=== PATIENT | male | born 1960 | race Caucasian/White ===

== ENCOUNTER 2019-10-25 12:55 | Inpatient (IN) ==
[2019-10-19 12:34] LABS: Basophils # (Auto) 0.06 K/mcL (0.00-0.30); Basophils % (Auto) 0.6 % (0.0-2.0); Eosinophils # (Auto) 0.12 K/mcL (0.00-0.70); Eosinophils % (Auto) 1.2 % (0.0-7.0); Hematocrit 48.8 % (40.1-51.0); Hemoglobin 15.9 g/dL (13.7-17.5); Lymphocytes # (Auto) 2.07 K/mcL (1.50-4.80); Lymphocytes % (Auto) 21.1 % (15.5-49.0); Mean Corpuscular HGB Conc 32.6 g/dL (31.0-36.0); Mean Platelet Volume 9.6 fL (7.4-10.4); Monocytes % (Auto) 7.1 % (1.0-12.0); Platelet Count 301 K/mcL (140-440); RBC 5.25 M/mcL (4.63-6.08); Red Cell Distribution Width 12.7 % (11.5-14.5); WBC 9.8 K/mcL (4.50-11.00)
[2019-10-19 12:44] LABS: Appearance,Urine CLEAR; Bacteria,Urine 0 /hpf (0); Bilirubin,Urine NEG (NEG); Color,Urine YELLOW; Culture Indicated,Urine NO; Glucose,Urine (UA) 150 mg/dL (NEG); Ketones,Urine NEG (NEG); Leukocyte Esterase,Urine NEG /uL (NEG); Mucus,Urine FEW /hpf (0); Nitrate,Urine NEG (NEG); Protein,Urine 100 mg/dL (NEG); Specific Gravity,Urine 1.013 (1.000-1.035); Urine Blood NEG mg/dL (<0.03); Urine Hyaline Cast 3 /lpf (0-2); Urine RBC 1 /hpf (0-1); Urine Squamous Epithelial Cell 1 /hpf (0-4); Urine WBC 2 /hpf (0-4); Urobilinogen,Urine NEG (NEG)
[2019-10-19 12:47] LABS: Blood Urea Nitrogen 38 mg/dl (8-23); Calcium 9.4 mg/dl (8.6-10.4); Carbon Dioxide 26 mmol/L (22-30); Chloride 102 mmol/L (96-108); Glomerular Filtration Rate 37; Glucose 63 mg/dL (70-105)
[2019-10-20 00:55] LABS: Estimated Average Glucose(eAG) 223 mg/dL; Hemoglobin A1C 9.4 % HGB (4.0-6.0)
[~2019-10-25 12:55] MED LIST: ceFAZolin 2 GM in DEXTROSE 5% IN WATER 50 ML IV SCH
[2019-10-25] MEDS ORDERED: KETAMINE 100 MG/ML ML IV ONE (15:09)
[2019-10-25] MEDS ORDERED: ONDANSETRON 4 MG/2 ML VIAL IV ONE (15:09)
[2019-10-25] MEDS ORDERED: GLYCOPYRROLATE 0.2 MG/ML VIAL IV ONE (15:09)
[2019-10-25] MEDS ORDERED: PHENYLEPHRINE 10 MG/ML VIAL IV ONE (15:09)
[2019-10-25] MEDS ORDERED: LIDOCAINE HCL/PF 100 MG/5 ML SYRINGE IV ONE (15:09)
[2019-10-25] MEDS ORDERED: fentaNYL 100 MCG/2 ML VIAL IV ONE (15:09)
[2019-10-25] MEDS ORDERED: MIDAZOLAM 2 MG/2 ML VIAL IV ONE (15:09)
[2019-10-25] MEDS ORDERED: DEXAMETHASONE 10 MG/ML VIAL IV ONE (15:09)
[2019-10-25] MEDS ORDERED: PROPOFOL 200 MG/20 ML VIAL IV ONE (15:09)
[2019-10-25] MEDS ORDERED: ONDANSETRON 4 MG/2 ML VIAL IV PRN ×2 (16:13→16:30)
[2019-10-25] MEDS ORDERED: IPRATROPIUM/ALBUTEROL 3 ML AMPUL.NEB NEB PRN (16:13)
[2019-10-25] MEDS ORDERED: ACETAMINOPHEN 1,000 MG/100 ML BOTTLE IV ONE (16:13)
[2019-10-25] MEDS ORDERED: METHOCARBAMOL 1,000 MG/10 ML VIAL IV PRN (16:13)
[2019-10-25] MEDS ORDERED: LACTATED RINGERS 1,000 ML IV SCH (16:15)
[2019-10-25] MEDS ORDERED: BENZOCAINE/MENTHOL 1 LOZENGE PO PRN (16:30)
[2019-10-25] MEDS: fentaNYL 100 MCG/2 ML VIAL IV PRN ×4 (16:47→16:57)
--- NOTE | 2019-10-25 17:17 | Brief Operative Note ---
Brief Operative Note Date of procedure: 10/25/19 Pre-op diagnosis: L Thumb Open Wounds, Sultana Abscess, Flexor Tenosynovitis Post-op diagnosis: other (L Thumb Open Wounds, Sultana Abscess, Flexor Tenosynovitis with FPL Rupture, Distal and Proximal Phalanx Osteomyelitis) Procedure: 1. Debridement and irrigation of left thumb sultana abscess 2. Debridement and irrigation of left thumb FPL flexor sheath with excision of FPL tendon 3. Debridement and irrigation of left thumb distal phalanx osteomyelitis 4. Debridement and irrigation of left thumb proximal phalanx ostermyelitis Grafts/Implants: No Findings: As above Complications: none Surgeon: Chetan Goss Estimated blood loss (cc): 3 Tourniquet Time (Minutes): 47 Specimens Removed/Pathology: other (Aerobic/Anaerobic cultures left thumb flexor sheath) Condition: stable Disposition: PACU
[2019-10-25] MEDS: HYDROCODONE/APAP 7.5/325MG TABLET PO PRN ×2 (17:24→21:15)
--- NOTE | 2019-10-25 17:27 | XRay Report ---
HISTORY: Postop debridement and irrigation of the left thumb FINDINGS: There is overlying cast material which partially obscures the phalanges of the left thumb. There is normal alignment at the metacarpal phalangeal and interphalangeal joints. The interphalangeal joint space is narrowed due to underlying arthritis. There may be erosion of bone in the distal end of the proximal phalanx. This is difficult to determine due to the overlying artifact. IMPRESSION: Surgical changes following debridement in the mid thumb. Underlying osteomyelitis in the distal end of the proximal phalanx should be suspected. Follow-up x-ray without cast material would be helpful for further workup. Interpreted and Authenticated by: Paco Nation 10/25/19
[2019-10-25] MEDS ORDERED: VANCOMYCIN PER PHARMACY IV SCH (19:08)
[2019-10-25] MEDS ORDERED: METHOCARBAMOL 750 MG TABLET PO PRN ×2 (20:48→21:15)
[2019-10-25] MEDS ORDERED: TESTOSTERONE CYPIONATE 200 MG/ML IM SCH (21:00)
[2019-10-25] MEDS ORDERED: VANCOMYCIN 1,500 MG in 0.9 % SODIUM CHLORIDE 500 ML IV SCH (21:00)
[2019-10-25] MEDS ORDERED: rOPINIRole 1 MG TABLET PO SCH (21:00)
[2019-10-25] MEDS ORDERED: DEXTROSE 50% 50 ML VIAL IV PRN (21:14)
[2019-10-25] MEDS ORDERED: DEXTROSE 31 GM ORAL.SUSP PO PRN (21:14)
[2019-10-25] MEDS: CEFEPIME 2 GM VIAL IV SCH (21:15)
[2019-10-25] MEDS ORDERED: HYDROcodone/APAP 10/325MG TABLET PO PRN (21:15)
[2019-10-25] MEDS ORDERED: INSULIN LISPRO 1 UNIT/0.01 ML UNIT SQ ONE (21:19)
--- NOTE | 2019-10-25 21:22 | Internal Med History&Physical ---
HPI History of Present Illness Patient information: Note initiated : 10/25/19 at 9:19 pm Service Date, if different from initiated Date: [] Patient: Shamar Valenzuela 59 y/o M admitted on 10/25/19 for Debridement & irrigation of Left thumb palmar open. Chief Complaint: [] This is a 59-year-old gentleman with a history of CAD, status post neck surgery, uncontrolled diabetes, obesity, CKD stage III on chronic diuretics, peripheral neuropathy was brought to the hospital for infected left thumb open wound and abscess. Patient underwent surgery in the OR by orthopedic surgeon and they did a drainage of the abscess and which showed evidence of flexor tenosynovitis and FPL rupture. Post debridement and irrigation patient was admitted for further management. No features of sepsis no fever no chills. Patient has history of type 2 diabetes uncontrolled on insulin continued his home medications. History of CAD status post stent placement continued home medications. History of present illness: Mr. Valenzuela is a 59 year old M Constitutional Constitutional: Absent frequent falls, lethargy and weight gain EENT Eyes: Absent decreased night vision, dry eye, irritation and loss of vision Ears: Absent decreased hearing, ear discharge and tinnitus Nose, mouth and throat: Absent dry mouth, facial pain, hoarseness, mouth pain and nasal obstruction Cardiovascular Cardiovascular: Absent leg ulcers, palpatations, radiating pain and syncope Respiratory Respiratory: Absent stridor, excessive phlegm production and other Gastrointestinal Gastrointestinal: Absent constipation, dyspepsia, excessive flatus, hematemesis, melena and tenesmus Musculoskeletal Musculoskeletal: Present arthralgias, limited range of motion, muscle weakness and myalgias Neurological Neurological: Absent dizziness, headache(s), memory loss, radicular pain, syncope and vertigo Hematologic/Lymphatic Hematologic/Lymphatic: Absent easy bleeding, easy bruising and lymphadenopathy [facility] Medical History (Updated 06/21/16 @ 18:25 by Yamel Mccartney MD) Appendicitis (Chronic) 1979 Asthma (Chronic) Bowel trouble (Chronic) Bronchitis (Chronic) Dr Alvarez Cervical vertebral fracture (Chronic) 1983-Broken cervical vertabrae Chest discomfort (Chronic) Chest pain (Chronic) Chronic kidney disease (Chronic) Constipation (Chronic) COPD (chronic obstructive pulmonary disease) (Chronic) CRF (chronic renal failure) (Chronic) Stage 3- Dr. Gutierrez Decreased testosterone level (Chronic) Depression (Chronic) Diabetes (Chronic) Diabetes mellitus type 2, uncontrolled (Chronic) Edema (Chronic) Erectile dysfunction (Chronic) Foot lesion (Chronic) High blood pressure (Chronic) History of headache (Chronic) Hypogonadism (Chronic) Indigestion (Chronic) Knee pain, right (Chronic) Low back pain (Chronic) Dr Hermosillo Macular edema (Chronic) Onychomycosis (Chronic) Prostate troubles (Chronic) Pyloric stenosis (Chronic) 1953 SOB (shortness of breath) (Chronic) Vitreous hemorrhage, left eye (Chronic) Surgical History (Updated 10/19/15 @ 16:44 by Sandrine Rodriguez) History of surgery (Chronic) Stent placement 10/2013 Dr. Morgan, Needs Plavix x1 year Family History (Updated 10/19/15 @ 16:53 by Sandrine Rodriguez) Mother Family history of thyroid problem Cancer Arthritis Osteoporosis Father Heart disease High blood pressure Social History marital status: occupational status: unemployed smoking status: Never smoker alcohol intake frequency: does not drink seatbelt use: sometimes MEDS/ALLERGIES Home Medications and Allergies Home Medications Medication Instructions Recorded Confirmed Type carvedilol 6.25 mg tablet 12.5 mg PO BID 10/20/15 10/25/19 History clopidogrel 75 mg tablet 25 mg PO QDAY 10/20/15 10/25/19 History hydrocodone 10 mg-acetaminophen 1 tab PO Q6H PRN 10/20/15 10/25/19 History 325 mg tablet insulin syringe-needle U-100 1 unit MISCELLANE BID 10/20/15 10/25/19 History levothyroxine 100 mcg capsule 100 mcg PO QAM cap 10/20/15 10/25/19 History spironolactone 25 mg tablet 25 mg PO BID 10/20/15 10/25/19 History testosterone cypionate 200 mg/mL 400 mg IM Q2W ml 10/20/15 10/25/19 History intramuscular oil furosemide 40 mg tablet 40 mg PO BID tab 11/14/15 10/25/19 History methocarbamol 750 mg tablet 750 mg PO TID PRN tab 11/14/15 10/25/19 History insulin aspart U-100 100 unit/mL 15 unit SUB-Q BID 90 Days #60 06/21/16 10/25/19 History (3 mL) subcutaneous pen insulin glargine 100 unit/mL (3 35 unit SUB-Q BID 90 Days #30 ml 06/21/16 10/25/19 History mL) subcutaneous pen potassium chloride 10 mEq 10 meq PO TID cap 06/21/16 10/25/19 History capsule,extended release gabapentin 300 mg PO TID 10/19/19 10/25/19 History glyburide 10 mg PO BID 10/19/19 10/25/19 History modafinil 100 mg PO QDAY 10/19/19 10/25/19 History ropinirole 4 mg PO QDAY 10/19/19 10/25/19 History blood sugar diagnostic 10/25/19 10/25/19 History Allergies Allergy/AdvReac Type Severity Reaction Status Date / Time hydromorphone [From Dilaudid] Allergy Intermediate Seizure Verified 10/19/19 09:51 EXAM Constitutional Vitals: Temp Pulse Resp BP Pulse Ox 98.7 F 81 12 148/70 96 10/25/19 20:21 10/25/19 20:21 10/25/19 20:21 10/25/19 20:21 10/25/19 20:21 Head Head exam: Present atraumatic, normal inspection and normocephalic Eye Eye exam: Present EOMI; Absent periorbital swelling and scleral icterus ENT ENT exam: Present normal exam, normal external ear exam and normal oropharynx Neck Neck exam: Absent lymphadenopathy, tenderness and thyromegaly Respiratory Respiratory exam: Absent accessory muscle use, respiratory distress, rhonchi and wheezes Cardiovascular Cardiovascular exam: Absent JVD, +S3, +S4 and systolic murmur GI/Abdominal GI/Abdominal exam: Absent hernia, mass and rebound Neurological Exam Neurological exam: Present alert, oriented X3 and reflexes normal; Absent motor sensory deficit Psychiatric Psychiatric exam: Present normal affect; Absent anxious A/P Narrative A/P Narrative: Narrative: Left palmar abscess and tenosynovitis status post drainage Orthopedic surgery took the patient to the OR and underwent drainage and cultures pending Ordered blood culture Started the patient on vancomycin and cefepime Patient is very adamant he wants to go home tomorrow No evidence of sepsis next History of CAD status post stent placement Continue clopidogrel Continue Coreg Patient is also on Lasix and spironolactone-we will hold that for now Type 2 diabetes Continue his home insulin regimen and sliding scale insulin We will hold the glyburide CKD stage III Patient is on chronic diuretics Creatinine 1.9 close to baseline will recheck creatinine tomorrow No evidence of obvious heart failure Recommend the patient to discuss with the PCP and decide on the further need of diuretics We will hold the diuretics for now Peripheral neuropathy due to diabetes Decrease the dose of gabapentin 200 3 times daily which is probably causing bilateral leg edema DVT prophylaxis-we will consider starting heparin as per orthopedic surgeon CODE STATUS-full code Expected length of stay-1-2 midnights CPT code 75985 Time Spent With Patient Time: Total time spent is greater than 50% in coordination of care (as docu mented) at patient's floor/unit and/or counseling patient: QUALITY VTE Deep Vein Thrombosis/Pulmonary Embolism Present on Admission: No
[2019-10-25] MEDS: 0.9 % SODIUM CHLORIDE 10 ML SYRINGE IV SCH (21:30)
[2019-10-25] MEDS: INSULIN GLARGINE, HUMAN 1 UNIT/0.01 ML SQ SCH (21:59)
[2019-10-25] MEDS: GABAPENTIN 300 MG CAPSULE PO SCH (22:00)
[2019-10-25] MEDS ORDERED: ceFAZolin 1 GM VIAL IV SCH (23:00)
[2019-10-26] MEDS: MUPIROCIN OINT 2% 22GM NARES SCH ×2 (00:09→08:49)
[2019-10-26] MEDS: 0.9 % SODIUM CHLORIDE 10 ML SYRINGE IV SCH ×2 (05:54→14:56)
[2019-10-26] MEDS: CEFEPIME 2 GM VIAL IV SCH ×2 (05:54→13:08)
[2019-10-26] MEDS: HYDROCODONE/APAP 7.5/325MG TABLET PO PRN ×4 (05:54→16:28)
[2019-10-26 06:45] LABS: Basophils # (Auto) 0.01 K/mcL (0.00-0.30); Basophils % (Auto) 0.1 % (0.0-2.0); Eosinophils # (Auto) 0 K/mcL (0.00-0.70); Eosinophils % (Auto) 0 % (0.0-7.0); Granulocytes % (Auto) 87.2 % (38.0-78.0); Hematocrit 48.9 % (40.1-51.0); Hemoglobin 15.6 g/dL (13.7-17.5); Lymphocytes # (Auto) 1.07 K/mcL (1.50-4.80); Lymphocytes % (Auto) 9.6 % (15.5-49.0); Mean Cell Volume 94.2 fL (80.0-100.0); Mean Corpuscular HGB Conc 31.9 g/dL (31.0-36.0); Mean Platelet Volume 9.6 fL (7.4-10.4); Monocytes # (Auto) 0.35 K/mcL (0.10-0.90); Monocytes % (Auto) 3.1 % (1.0-12.0); Platelet Count 214 K/mcL (140-440); RBC 5.19 M/mcL (4.63-6.08); Red Cell Distribution Width 12.3 % (11.5-14.5); WBC 11.2 K/mcL (4.50-11.00)
[2019-10-26 06:56] LABS: ALT/SGPT 18 U/l (0-40); AST/SGOT 15 U/l (0-37); Albumin 3.6 gm/dL (3.2-5.2); Albumin/Globulin Ratio 1.1 (1.0-2.3); Alkaline Phosphatase 58 U/L (39-117); Bilirubin,Total 0.2 mg/dL (0.0-1.0); Blood Urea Nitrogen 41 mg/dl (8-23); Calcium 8.6 mg/dl (8.6-10.4); Carbon Dioxide 23 mmol/L (22-30); Chloride 103 mmol/L (96-108); Globulin 3.4 gm/dL (2.2-3.7); Glomerular Filtration Rate 46; Glucose 307 mg/dL (70-105)
[2019-10-26] MEDS ORDERED: LEVOTHYROXINE 100 MCG TABLET PO SCH (07:30)
[2019-10-26] MEDS ORDERED: INSULIN LISPRO 1 UNIT/0.01 ML UNIT SQ SCH (07:30)
[2019-10-26] MEDS ORDERED: glyBURIDE 5 MG TABLET PO SCH (07:30)
[2019-10-26] MEDS ORDERED: POTASSIUM CHLORIDE 10 MEQ TABLET PO SCH (08:00)
[2019-10-26] MEDS ORDERED: CARVEDILOL 12.5 MG TABLET PO SCH (08:00)
--- NOTE | 2019-10-26 08:28 | Operative Note ---
DATE OF OPERATION: 10/25/2019 PREOPERATIVE DIAGNOSES 1. Left thumb palmar open wounds. 2. Left thumb palmar abscess. 3. Left thumb suppurative flexor tenosynovitis. POSTOPERATIVE DIAGNOSES: 1. Left thumb open palmar wounds. 2. Left thumb palmar abscess. 3. Left thumb suppurative flexor tenosynovitis with a traumatic rupture of the flexor pollicis longus tendon. 4. Left thumb distal phalanx osteomyelitis. 5. Left thumb proximal phalanx osteomyelitis. PROCEDURE: 1. Debridement and irrigation of the left thumb palmar abscess. 2. Debridement and irrigation of the left thumb suppurative flexor tenosynovitis and flexor tendon with debridement of the necrotic and ruptured flexor pollicis longus. 3. Debridement and irrigation of the left thumb distal phalanx osteomyelitis. 4. Debridement and irrigation of the left thumb proximal phalanx osteomyelitis. PRIMARY SURGEON: Chetan Goss M.D. ANESTHESIA: General laryngeal mask. ESTIMATED BLOOD LOSS: 3 mL. DRAINS: 1/4-inch Bloomingrose drains placed deep at the distal and proximal aspects of the flexor tendon sheath placed deep to the tendon sheath. SPECIMENS: Aerobic and anaerobic cultures of the flexor sheath. COMPLICATIONS: None. FINAL SPONGE COUNT: Correct. TOTAL TOURNIQUET TIME: 47 minutes. INDICATION: The patient is a 59-year-old, [id number] male who over a month ago sustained a laceration to the palmar aspect of his left thumb with pain, swelling, loss of motion and function with subsequent development of pain, redness, swelling, and drainage from the wound sites that has been refractory to conservative management. His physical examination demonstrates palmar open wounds on the interphalangeal joint and the metacarpophalangeal joint with purulent drainage, necrotic soft tissue evident, limited range of motion with erythema, induration, and purulent drainage. The patient and family verbalized that they understood the proposed procedure with the associated risks and benefits and consented. DESCRIPTION OF PROCEDURE: The patient was taken to the operating room suite and placed supine on the operating room table. Next, general anesthesia was obtained with laryngeal mask. After adequate anesthesia was verified, a tourniquet was placed on the proximal aspect of his left arm, and the left upper extremity was then sterilely prepped and draped in the usual fashion. The thumb was identified. The two open wounds were identified. Next, the wound sites were then connected with an incision line drawn from the ulnar aspect of the more distal wound to the radial aspect of the more proximal wound, and then extended proximally into the thenar musculature. After this demonstrated to be in good position, the left upper extremity was exsanguinated and tourniquet inflated to 280 mmHg. Next, the aforemarked incision was then made. Sharp dissection was taken down through the skin and subcutaneous tissues. Subcutaneous tissues were bluntly divided. There was seen to be significant necrotic and purulent material within the flexor sheath. Meticulous dissection distally also demonstrated purulent material extending from the distal phalanx and the insertion site of the flexor pollicis longus tendon with evidence of necrotic bone and osteomyelitis. There was also evidence of necrotic bone at the distal aspect of the proximal phalanx. Meticulous dissection was taken proximally into the thenar musculature. The incision was extended proximally somewhat to the thenar musculature. This was then meticulously dissected with the soft tissues bluntly with hemostasis, and there was seen to be a necrotic flexor tendon proximally at the flexor tendon sheath with purulence. Next, with the use of sharp and blunt dissection, all necrotic tissue had been removed. The flexor pollicis longus tendon was pulled out to length to good viable tissue and incised, and the necrotic tissue was then removed. There was seen to be significant necrotic tissue at the flexor pollicis longus insertion site of the distal phalanx. The necrotic tissue was all debrided, and into the distal phalanx with the use of a rongeur and curet all necrotic bone was removed from the palmar aspect of the distal phalanx. Next, the debridement was taken into the proximal phalanx at the distal aspect. This was also debrided with a curet and rongeur, and all necrotic tissue was removed. Next, copious irrigation with a liter of sterile saline solution, a repeat debridement of all necrotic former tissues, a second liter of sterile saline solution, a repeat debridement, and a third liter of sterile saline solution and debridement, and a fourth liter of sterile saline solution with a final debridement were performed. The necrotic edges of the skin were also debrided back about 2 mm at the proximal and distal wound sites. After this was completed, there was seen to be excellent removal of all necrotic and/or foreign material. The neurovascular bundles were intact. The flexor pollicis longus tendon had been excised, but the interphalangeal joint and the metacarpophalangeal joints were intact. After the final irrigation, the skin edges were then closed with 4-0 nylon in interrupted sutures and two 1/4-inch Bloomingrose drains placed, one distally and one proximally at the wound sites deep to the flexor sheath. The tourniquet was released. The thumb was seen to pink up very nicely with good drainage from the drain sites. A sterile bulky thumb spica dressing was applied, and a thumb spica splint was applied with the wrist in slight extension and the metacarpals in a neutral position. The patient was awakened, transferred to the [facility], and to the recovery room in stable condition. The patient tolerated the procedure well. Estimated blood loss was 3 mL. Drains included 1/4-inch Hien drain placed proximally and distally deep to the flexor tendon sheath. Complications were none. Final sponge count was correct. Specimens included aerobic and anaerobic cultures of flexor tendon sheath. There was a total tourniquet time of 47 minutes. SRBertha:[email or web address] Job ID: [id number] Doc ID: [id number] Chetan Goss MD
[2019-10-26] MEDS: SPIRONOLACTONE 25 MG TABLET PO SCH ×2 (08:45→16:34)
[2019-10-26] MEDS: INSULIN GLARGINE, HUMAN 1 UNIT/0.01 ML SQ SCH (08:46)
[2019-10-26] MEDS: FUROSEMIDE 40 MG TABLET PO SCH ×2 (08:46→16:34)
[2019-10-26] MEDS: GABAPENTIN 300 MG CAPSULE PO SCH ×2 (08:46→16:34)
[2019-10-26] MEDS: INSULIN LISPRO 1 UNIT/0.01 ML UNIT SQ SCH ×4 (08:46→16:34)
[2019-10-26] MEDS ORDERED: ROPINIROLE 4 MG PO SCH (09:00)
[2019-10-26] MEDS ORDERED: CARVEDILOL 6.25 MG TABLET PO SCH (09:00)
[2019-10-26] MEDS ORDERED: GABAPENTIN 300 MG CAPSULE PO SCH (09:00)
[2019-10-26] MEDS ORDERED: CLOPIDOGREL 75 MG TABLET PO SCH ×2 (09:00)
[2019-10-26] MEDS ORDERED: LEVOTHYROXINE 100 MCG PO SCH (09:00)
[2019-10-26] MEDS ORDERED: MODAFINIL 200 MG TABLET PO SCH (09:00)
[2019-10-26] MEDS ORDERED: INSULIN GLARGINE 35 UNIT SUB-Q SCH (09:00)
[2019-10-26] MEDS ORDERED: VANCOMYCIN 1,000 MG in 0.9 % SODIUM CHLORIDE 250 ML IV SCH (09:00)
[2019-10-26] MEDS ORDERED: INSULIN ASPART U SUB-Q SCH (09:00)
[2019-10-26] MEDS ORDERED: SODIUM POLYSTYRENE SULFONATE 15 GM/60 ML SUSPENSION PO ONE (09:15)
--- NOTE | 2019-10-26 11:42 | Discharge Summary ---
Discharge Provider Provider Patient information: Note initiated : 10/26/19 at 11:40 am Service Date, if different from initiated Date: [] Patient: Shamar Valenzuela 59 y/o M admitted on 10/25/19 for Debridement & irrigation of Left thumb palmar open. Chief Complaint: This is a 59-year-old gentleman with a history of CAD, status post neck surgery, uncontrolled diabetes, obesity, CKD stage III on chronic diuretics, peripheral neuropathy was brought to the hospital for infected left thumb open wound and abscess. Patient underwent surgery in the OR by orthopedic surgeon and they did a drainage of the abscess and which showed evidence of flexor tenosynovitis and FPL rupture. Post debridement and irrigation patient was admitted for further management. No features of sepsis no fever no chills. Patient has history of type 2 diabetes uncontrolled on insulin continued his home medications. History of CAD status post stent placement continued home medications. 10/26/2019 Patient was very adamant he wants to be discharged home today Otherwise he threatened to leave AMA Discussed with the orthopedic surgeon Dr. Goss. He recommended patient to be discharged home with outpatient IV antibiotics. He recommended ordering a PICC line for outpatient antibiotics Patient's blood culture is pending negative for 24-hour but the PICC line team wanted 48-hour negative blood culture. Discussed with the PICC line nurse and they are planning to place a PICC line tomorrow when you come for infusion Patient will be discharged with vancomycin daily and ceftriaxone 2 g daily Patient will be scheduled to follow-up with infectious disease specialist in 5 days and primary care in 5 days Patient also see orthopedic surgeon Dr. Goss in 5 days Patient's potassium was 5.8 today strongly recommend the patient to stay until we recheck the potassium after giving 30 mg of Kayexalate If his potassium is coming down patient can be released otherwise he has to go AMA if he wants to leave. He was taking potassium supplement at home which probably resulted in high potassium when we stopped the diuretics Left palmar abscess and tenosynovitis status post drainage Orthopedic surgery took the patient to the OR and underwent drainage and cultures pending Ordered blood culture Started the patient on vancomycin and cefepime Patient is very adamant he wants to go home tomorrow No evidence of sepsis Patient was very adamant to be discharged home today otherwise he threatened to left AMA Discussed with orthopedic surgeon and plan is to place a PICC line tomorrow and discussed with the PICC line nurse Pending blood cultures so far no growth Patient will be discharged on vancomycin and ceftriaxone daily Patient is established with infectious disease Hyperkalemia due to potassium supplement Patient takes 30 mEq of potassium at home We stopped the diuretics ? Worsening renal failure probably due to diuretics Patient does not have any evidence of congestive heart failure He has chronic leg edema which probably due to gabapentin We stopped the diuretics as the patient did not have any hypoxia no hyperkalemia and worsening renal failure His creatinine started improving I strongly recommend patient is to follow-up with the primary care provider and decide on the further need of diuretics History of CAD status post stent placement Continue clopidogrel Continue Coreg Patient is also on Lasix and spironolactone-we will hold that for now Type 2 diabetes Continue his home insulin regimen and sliding scale insulin We will hold the glyburide Peripheral neuropathy due to diabetes Decrease the dose of gabapentin 200 3 times daily which is probably causing bilateral leg edema DVT prophylaxis-we will consider starting heparin as per orthopedic surgeon CODE STATUS-full code Date of admission: 10/25/19 17:12 Discharge date: 10/26/19 Primary care physician: JOSEPHINE Chirinos Consults: 10/25/19 16:36 Consult to Physician [CONS] Routine Comment: Hospitalist to consult for post op medical Consulting Provider: Chetan Goss Reason For Exam: Physician to Consult 10/25/19 20:04 Consult to Physician [CONS] Routine Comment: Consulting Provider: Joselo Rachel Reason For Exam: Physician to Consult Discharge Meds Discharge Medications Active and Home Medications: Home Medications carvedilol 6.25 mg tablet 12.5 mg PO BID 10/20/15 [History Confirmed 10/25/19 Last Taken 10/25/19 09:30] clopidogrel 75 mg tablet 75 mg PO QDAY 10/20/15 [History Confirmed 10/25/19 Last Taken 10/19/19] hydrocodone 10 mg-acetaminophen 325 mg tablet 1 tab PO Q6H PRN 10/20/15 [History Confirmed 10/25/19 Last Taken 10/25/19 09:30] insulin syringe-needle U-100 1 unit MISCELLANE BID 10/20/15 [History Confirmed 10/25/19 Last Taken Unknown] levothyroxine 100 mcg capsule 100 mcg PO QAM cap 10/20/15 [History Confirmed 10/25/19 Last Taken 10/24/19] testosterone cypionate 200 mg/mL intramuscular oil 400 mg IM Q2W ml 10/20/15 [History Confirmed 10/25/19 Last Taken Unknown] methocarbamol 750 mg tablet 750 mg PO TID PRN tab 11/14/15 [History Confirmed 10/25/19 Last Taken 10/24/19] insulin aspart U-100 100 unit/mL (3 mL) subcutaneous pen 15 unit SUB-Q BID 90 Days #60 06/21/16 [History Confirmed 10/25/19 Last Taken 10/24/19] insulin glargine 100 unit/mL (3 mL) subcutaneous pen 35 unit SUB-Q BID 90 Days #30 ml 06/21/16 [History Confirmed 10/25/19 Last Taken 10/24/19] potassium chloride 10 mEq capsule,extended release 10 meq PO TID cap 06/21/16 [History Confirmed 10/25/19 Last Taken 10/24/19] gabapentin 300 mg PO TID 10/19/19 [History Confirmed 10/25/19 Last Taken 10/24/19] glyburide 10 mg PO BID 10/19/19 [History Confirmed 10/25/19 Last Taken 10/24/19] modafinil 100 mg PO QDAY 10/19/19 [History Confirmed 10/25/19 Last Taken 10/24/19] ropinirole 4 mg PO QDAY 10/19/19 [History Confirmed 10/25/19 Last Taken 10/24/19] blood sugar diagnostic 10/25/19 [History Confirmed 10/25/19 Last Taken Unknown] ceftriaxone 2 g IV QDAY 10 Days each NS 10/26/19 [Rx Last Taken Unknown] vancomycin 1 g IV Q24H 10 Days each NS 10/26/19 [Rx Last Taken Unknown] COURSE Hospital Course Discharge diagnosis: Palmar abscess, hyperkalemia Time Spent with Patient Time attestation: Total time spent providing and/or coordinating discharge services: EXAM Constitutional Vitals: Temp Pulse Resp BP Pulse Ox 97.1 F 68 16 121/64 97 10/26/19 07:31 10/26/19 07:31 10/26/19 07:31 10/26/19 07:31 10/26/19 07:31 General appearance: mild distress and obese Head Head exam: Present atraumatic and normal inspection Eye Eye exam: Present EOMI; Absent periorbital swelling and scleral icterus ENT ENT exam: Present normal exam, normal external ear exam and normal oropharynx Neck Neck exam: Present normal inspection; Absent lymphadenopathy and tenderness Respiratory Respiratory exam: Present CTAB; Absent accessory muscle use and respiratory distress Cardiovascular Cardiovascular exam: Present normal rate and rhythm; Absent clicks, JVD, +S3 and +S4 GI/Abdominal GI/Abdominal exam: Present soft and distended; Absent guarding and tenderness Neurological Exam Neurological exam: Present alert, oriented X3 and reflexes normal; Absent motor sensory deficit Psychiatric Psychiatric exam: Present depressed; Absent agitated and anxious Discharge Data Data Completed and Pending Labs on day of discharge: Labs from last 24 hours 10/26/19 10/26/19 05:14 05:14 WBC 11.2 H RBC 5.19 Hgb 15.6 Hct 48.9 MCV 94.2 MCH 30.1 MCHC 31.9 RDW 12.3 Plt Count 214 MPV 9.6 Gran % 87.2 H Lymph % (Auto) 9.6 L Davis % (Auto) 3.1 Eos % (Auto) 0 Baso % (Auto) 0.1 Gran # 9.73 H Lymph # (Auto) 1.07 L Davis # (Auto) 0.35 Eos # (Auto) 0 Baso # (Auto) 0.01 Sodium 137 Potassium 5.8 H Chloride 103 Carbon Dioxide 23 Anion Gap 11.0 BUN 41 H Creatinine 1.6 H GFR Calculation 46 Glucose 307 H Calcium 8.6 Magnesium 2.3 Total Bilirubin 0.2 AST 15 ALT 18 Alkaline Phosphatase 58 Total Protein 7.0 Albumin 3.6 Globulin 3.4 Albumin/Globulin Ratio 1.1 Preliminary micro results at discharge 10/25/19 17:14 Anaerobic Culture - Preliminary Wound - Deep Discharge Plan Patient/Caregiver Discharge Instructions Activity: increase activity as tolerated Diet: Regular Diet Activity Restrictions/Additional Instructions: Follow-up with your primary care provider in 1 to 2 days to recheck your potassium level Follow-up with Dr. Goss in [address] pascual in 5 days Continue daily antibiotics vancomycin and ceftriaxone at our infusion center and follow-up with infectious disease specialist for further management Prescriptions: New ceftriaxone 2 gram recon soln 2 g IV QDAY 10 Days RF: 0 vancomycin 1.5 gram recon soln 1 g IV Q24H 10 Days RF: 0 Continued carvedilol 6.25 mg tablet 12.5 mg PO BID RF: 0 clopidogrel [Plavix] 75 mg tablet 75 mg PO QDAY RF: 0 hydrocodone-acetaminophen 10-325 mg tablet 1 tab PO Q6H PRN (Reason: pain) RF: 0 testosterone cypionate [Depo-Testosterone] 200 mg/mL oil 400 mg IM Q2W RF: 0 levothyroxine 100 mcg capsule 100 mcg PO QAM RF: 0 insulin syringe-needle U-100 1 unit MISCELLANE BID RF: 0 methocarbamol 750 mg tablet 750 mg PO TID PRN (Reason: Muscle Spasms) RF: 0 insulin aspart U-100 100/ML insulin pen 15 unit SUB-Q BID 90 Days Qty: 60 RF: 0 insulin glargine 100/ML insulin pen 35 unit SUB-Q BID 90 Days Qty: 30 RF: 0 potassium chloride 10 mEq capsule, extended release 10 meq PO TID RF: 0 glyburide 5 mg Tablet 10 mg PO BID RF: 0 ropinirole 2 mg Tablet 4 mg PO QDAY RF: 0 gabapentin 300 mg Capsule 300 mg PO TID RF: 0 modafinil 100 mg Tablet 100 mg PO QDAY RF: 0 Discontinued spironolactone 25 mg tablet 25 mg PO BID RF: 0 furosemide 40 mg tablet 40 mg PO BID RF: 0 No Action (DME) blood sugar diagnostic Strip MISCELLANEOUS RF: 0 Follow Up Plan Follow up with: Hemalatha Morales ARNP [Primary Care Provider] - (in 1-2 days for follow up potassium) Shiraz Pascual MD [Physician] - (in 5 days for further antibiotics managment) Chetan Goss MD [Physician] - 10/28/19 10:50 am (in 5 days ) Patient Disposition: Home, Self-Care Rehab Potential: Serious I certify that the patient requires SNF services: No Overall status at discharge: patient is not back to baseline Discharge Orders: Discharge Order (Routine); Ordered 10/26/19 Ordered By: Joselo Rachel Discharge Comment: Make sure his recheck potassium is less than 5.8 QUALITY VTE Deep Vein Thrombosis/Pulmonary Embolism Present on Admission: No
== END 2019-10-26 16:55 | disposition home or self-care (01) | DRG 513 ==
LOC: SUR 12:55 → MEDSUR 17:12
PROVIDERS: ADMIT Internal Medicine; ATTEND Internal Medicine

== ENCOUNTER 2021-11-27 08:12 | Inpatient (IN) ==
[2021-11-27] MEDS ORDERED: IOPAMIDOL 100 ML BOTTLE IV ONE (08:13)
--- NOTE | 2021-11-27 08:27 | Emergency Department Note ---
HPI General Chief complaint: Shortness of Breath/Dyspnea Stated complaint: shortness of breath Time Seen by Provider: 11/27/21 08:16 Source: patient Mode of arrival: ambulatory Limitations: no limitations History of Present Illness HPI Narrative: Narrative: Patient is a 61-year-old male with a history significant for hypertension, COPD, CKD, CAD with history of stent, and diabetes who presents to the emergency de partment due to shortness of breath. Patient states that he has had worsening shortness of breath over the last 2 days. He states that this worsens with activity. He states that yesterday he did have a couple of episodes of heartburn. He states that he took Tums, and this improved. He states that he uses oxygen at night due to obstructive sleep apnea, but has had to use oxygen during the day more recently. Patient states that he has been less active due to the heat. He states that he has stayed inside and essentially has just been sitting. He states that his yesterday noticed that his right leg was more swollen than his left. He denies history of heart failure. He denies any other concerns at this time. Related Data Home Medications Medication Instructions Recorded Confirmed blood sugar diagnostic 10/25/19 11/17/21 nystatin 100,000 unit/gram topical 1 applic topical BID PRN 01/19/21 11/17/21 powder Previous Rx's Medication Instructions Recorded cholecalciferol (vitamin D3) 50 50 mcg PO QDAY #30 tabs 04/06/20 mcg (2,000 unit) tablet potassium chloride 10 mEq 10 meq PO TID #90 caps 01/19/21 capsule,extended release levothyroxine 100 mcg capsule 100 mcg PO QAM #90 caps 03/12/21 insulin glargine 100 unit/mL (3 32 unit (0.32 mL) subcut BID #60 mL 04/03/21 mL) subcutaneous pen (Lantus Solostar U-100 Insulin) oxygen #1 ea 04/11/21 insulin syringe-needle U-100 1 mL #100 ea 05/16/21 30 gauge x 1/2" carvedilol 12.5 mg tablet 12.5 mg PO BID #180 tabs 07/06/21 clopidogrel 75 mg tablet (Plavix) 75 mg PO QDAY #90 tabs 07/06/21 dulaglutide 4.5 mg/0.5 mL 4.5 mg (0.5 mL) subcut QWEEK #6 mL 07/06/21 subcutaneous pen injector gabapentin 300 mg capsule 600 mg PO TID #540 caps 07/06/21 lisinopril 5 mg tablet 5 mg PO QDAY #90 tabs 07/06/21 ropinirole 2 mg tablet 4 mg PO QDAY #180 tabs 07/06/21 atorvastatin 80 mg tablet 80 mg PO QDAY #90 tabs 07/12/21 glyburide 5 mg tablet 10 mg PO BID #360 tabs 08/03/21 furosemide 40 mg tablet 40 mg PO BID #60 tabs 08/29/21 spironolactone 25 mg tablet 25 mg PO BID #180 tabs 09/20/21 insulin aspart U-100 100 unit/mL 1 sliding scale dose subcut TID 10/04/21 subcutaneous solution #30 mL modafinil 100 mg tablet 100 mg PO QDAY PRN narcolepsy #30 10/30/21 tabs methocarbamol 750 mg tablet 750 mg PO TID Muscle Spasms #90 11/02/21 tabs hydrocodone 10 mg-acetaminophen See Rx Instructions .Route 11/16/21 325 mg tablet .COMPLEX PRN pain 30 days #200 tabs testosterone cypionate 200 mg/mL 200 mg IM Q2W #2 mL 11/16/21 intramuscular oil (Depo-Testosterone) ciprofloxacin HCl 500 mg tablet 500 mg PO Q12H #20 tabs 11/17/21 Allergies Allergy/AdvReac Type Severity Reaction Status Date / Time hydromorphone [From Dilaudid] Allergy Intermediate Seizure Verified 11/27/21 08:19 Review of Systems ROS ROS Narrative: Narrative: Constitutional: Denies fever or weakness Eyes: Denies eye pain or vision change ENT ED: Denies throat pain, hearing loss or rhinorrhea Cardiovascular: Reports chest pain (Heart burn yesterday), dyspnea on exertion, orthopnea and edema Respiratory: Reports shortness of breath; Denies cough Gastrointestinal: Denies abdominal pain, nausea, vomiting, diarrhea, constipation, hematochezia or melena Genitourinary: Denies dysuria, frequency, hematuria or incontinence Musculoskeletal: Reports back pain (Chronic, unchanged); Denies myalgia Integumentary: Denies rash or lesions Neurological: Denies headache, weakness, numbness, confusion, abnormal gait or dizziness Psychiatric: Denies anxiety, suicidal thoughts or homicidal thoughts Endocrine: Denies fatigue or polyuria Hematological/Lymphatic: Denies easy bleeding or easy bruising PFSH Narrative Patient History Narrative: Narrative: Medical/Surgical/Family History All Active Problems (Updated 11/27/21 @ 12:37 by Uche Brice MD) Constipation (Chronic) History of surgery (Chronic) Bronchitis (Chronic) Low back pain (Chronic) History of headache (Chronic) Depression (Chronic) Indigestion (Chronic) SOB (shortness of breath) (Chronic) Bowel trouble (Chronic) High blood pressure (Chronic) Erectile dysfunction (Chronic) Cervical vertebral fracture (Chronic) Appendicitis (Chronic) Pyloric stenosis (Chronic) Onychomycosis (Chronic) Hypogonadism (Chronic) Macular edema (Chronic) Edema (Chronic) Vitreous hemorrhage, left eye (Chronic) Knee pain, right (Chronic) COPD (chronic obstructive pulmonary disease) (Chronic) Asthma (Chronic) CKD (chronic kidney disease) stage 3, GFR 30-59 ml/min (Chronic) Chronic pain (Chronic) Vitamin D deficiency (Chronic) Hypertriglyceridemia (Chronic) 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) History of colonoscopy (Chronic ~09/25/18) termination clerk (current) use of opiate analgesic (Chronic) AJAY (obstructive sleep apnea) (Chronic) Morbid obesity due to excess calories (Chronic) Foot callus (Acute) Noncompliance with diet and medication regimen (Chronic) Degenerative joint disease of thoracic spine (Acute) Degenerative joint disease (DJD) of lumbar spine (Acute) Stress (Chronic) Acute exacerbation of CHF (congestive heart failure) (Acute) Medical History Appendicitis 1979 Asthma Bowel trouble Bronchitis Dr Alvarez Cervical vertebral fracture 1983-Broken cervical vertabrae Chest discomfort Chest pain Chronic pain Constipation COPD (chronic obstructive pulmonary disease) Decreased testosterone level Depression Diabetes mellitus with microalbuminuric diabetic nephropathy Edema Erectile dysfunction Foot callus High blood pressure History of headache Hypertriglyceridemia Hypogonadism Indigestion Knee pain, right shelter (current) use of opiate analgesic Low back pain Dr [place]osillo Macular edema Morbid obesity due to excess calories Noncompliance with diet and medication regimen Obesity due to excess calories Onychomycosis AJAY (obstructive sleep apnea) Did not tolerate BiPAP, currently wears oxygen at night Diagnosed around 2012 Osteomyelitis Prostate troubles Pyloric stenosis 1953 SOB (shortness of breath) Stress Vitamin D deficiency Vitreous hemorrhage, left eye Yeast infection of the skin Groin Surgical History History of colonoscopy (~09/25/18) History of surgery Stent placement 10/2013 Dr. Brizuela Needs Plavix x1 year Family History Mother Family history of thyroid problem Cancer Arthritis Osteoporosis Father Heart disease High blood pressure Social History Smoking Status: Never smoker Alcohol Intake Frequency: a few times a week Exam Narrative Narrative: Narrative: General Limitations: no limitations General appearance: Present alert and in no apparent distress; Absent anxious or appears intoxicated Head Head: Present atraumatic and normocephalic Eye Eye: Present PERRL and EOMI; Absent scleral icterus ENT ENT: Present mucous membranes moist; Absent nasal congestion Neck Neck: Present full ROM; Absent tenderness Chest Chest: Present normal inspection and symmetric chest wall rise; Absent tenderness Respiratory Respiratory: Present rales/crackles (Bilateral lung bases); Absent respiratory distress or accessory muscle use Cardiovascular Cardiovascular: Present regular rate, normal rhythm and normal heart sounds Adbominal Abdominal: Present soft and normal bowel sounds; Absent distention or tenderness Extremities Extremities: Present normal inspection and full ROM; Absent tenderness Back Back: Present normal inspection and full ROM; Absent tenderness Neurological Neurological: Present alert and oriented X3 Psychiatric Psychiatric: Present normal affect and normal mood Skin Skin: Present warm (WNL), dry and normal color Course Vital Signs Vital signs: Vital Signs Temperature 98.8 F 11/27/21 08:12 Pulse Rate 104 H 11/27/21 08:12 Respiratory Rate 26 H 11/27/21 08:12 Blood Pressure 175/64 11/27/21 08:12 Pulse Oximetry (%) 87 L 11/27/21 08:12 Oxygen Delivery Method 11/27/21 08:12 Temperature 98.8 F 11/27/21 08:12 Pulse Rate 92 H 11/27/21 12:30 Respiratory Rate 20 11/27/21 12:30 Blood Pressure 148/66 11/27/21 12:19 Pulse Oximetry (%) 98 11/27/21 12:30 Oxygen Delivery Method 11/27/21 08:13 Oxygen Flow Rate (L/min) 3 11/27/21 08:13 MDM MDM Narrative Medical decision making narrative: Narrative: Patient is a 61-year-old male with a history significant for hypertension, COPD, CKD, CAD with history of stent, and diabetes who presents to the emergency department due to shortness of breath. Differential diagnoses include ACS, pneumonia, COVID infection, influenza, heart failure exacerbation. Patient is found to have a BNP greater than 2000. His chest x-ray does demonstrate findings consistent with heart failure exacerbation with bilateral inferior pulmonary edema. A CT scan was performed due to larger right calf, but after patient's arrived she stated that his legs are always like this. CT scan redemonstrated pulmonary edema and did show pleural effusions. There is no pulmonary embolus. Patient has received a dose of Lasix. I have spoken to our hospitalist who has agreed to see and evaluate this patient for admission. Lab Data Result diagrams: 11/27/21 08:31 Labs: Lab Results 11/27/21 11/27/21 11/27/21 Range/Units 08:28 08:31 08:32 WBC 14.7 H (4.5-11.0) K/mcL RBC 3.97 L (4.63-6.08) M/mcL Hgb 11.9 L (13.7-17.5) g/dL Hct 36.5 L (40.1-51.0) % POC Hct 35.0 L (41-55) MCV 91.9 (80.0-100.0) fL MCH 30.0 (26.0-34.0) pg MCHC 32.6 (31.0-36.0) g/dL RDW 13.0 (11.5-14.5) % Plt Count 248 (140-440) K/mcL MPV 10.0 (7.4-10.4) fL Immature Gran % (Auto) 0.4 (0.0-0.5) % Neut % (Auto) 85.4 H (38.0-78.0) % Lymph % (Auto) 7.7 L (15.5-49.0) % Real % (Auto) 5.7 (1.0-12.0) % Eos % (Auto) 0.3 (0.0-7.0) % Baso % (Auto) 0.5 (0.0-2.0) % Lymph # (Auto) 1.13 L (1.50-4.80) K/mcL Real # (Auto) 0.83 (0.10-0.90) K/mcL Eos # (Auto) 0.04 (0.00-0.70) K/mcL Baso # (Auto) 0.07 (0.00-0.30) K/mcL Immature Gran # 0.06 H (0.00-0.05) K/mcl Absolute Neutrophils 12.59 H (1.80-8.00) K/mcL POC Sodium 138 (133-145) POC Potassium 5.2 H (3.3-5.1) POC Chloride 107 (96-108) POC Total CO2 23.0 (22-30) POC BUN 27 H (6-20) POC Creatinine 1.3 H (0.6-1.2) POC Glucose 255 H (70-105) POC WB Ioniz Calcium 1.28 (1.16-1.32) NT-Pro-B Natriuret Pep (<125.0) pg/mL POC Troponin I 0.01 L (0.02-0.08) 11/27/21 Range/Units 08:53 WBC (4.5-11.0) K/mcL RBC (4.63-6.08) M/mcL Hgb (13.7-17.5) g/dL Hct (40.1-51.0) % POC Hct (41-55) MCV (80.0-100.0) fL MCH (26.0-34.0) pg MCHC (31.0-36.0) g/dL RDW (11.5-14.5) % Plt Count (140-440) K/mcL MPV (7.4-10.4) fL Immature Gran % (Auto) (0.0-0.5) % Neut % (Auto) (38.0-78.0) % Lymph % (Auto) (15.5-49.0) % Real % (Auto) (1.0-12.0) % Eos % (Auto) (0.0-7.0) % Baso % (Auto) (0.0-2.0) % Lymph # (Auto) (1.50-4.80) K/mcL Real # (Auto) (0.10-0.90) K/mcL Eos # (Auto) (0.00-0.70) K/mcL Baso # (Auto) (0.00-0.30) K/mcL Immature Gran # (0.00-0.05) K/mcl Absolute Neutrophils (1.80-8.00) K/mcL POC Sodium (133-145) POC Potassium (3.3-5.1) POC Chloride (96-108) POC Total CO2 (22-30) POC BUN (6-20) POC Creatinine (0.6-1.2) POC Glucose (70-105) POC WB Ioniz Calcium (1.16-1.32) NT-Pro-B Natriuret Pep 2076.0 H (<125.0) pg/mL POC Troponin I (0.02-0.08) ED POC Tests ED POC Tests: NATHAN - Influenza A Negative NATHAN - Influenza B Negative NATHAN - SARS Antigen Negative EKG Data EKG #1: EKG attestation: Yes I reviewed and interpreted this EKG. EKG results narrative: Sinus tachycardia with a rate of 103, normal axis, MO of 145, QRS of 147, QTC of 503, T wave inversion in lead III, right bundle branch pattern, and absence of ST elevation or depression. Discharge Plan Patient/Caregiver Discharge Instructions Pt seen by MACHINE OR MACHINERY MECHANIC/PA only: No Clinical Impression: Acute exacerbation of CHF (congestive heart failure) Patient Disposition: Xfer As Inpt ([facility] [place] Condition: Fair Follow up with: Israel Sung MD [Primary Care Provider] - Prescriptions: No Action levothyroxine 100 mcg capsule 100 mcg PO QAM Qty: 90 1RF Lantus Solostar U-100 Insulin 100 unit/mL (3 mL) insulin pen 32 unit subcut BID Qty: 60 1RF (DME) insulin syringe-needle U-100 1 mL 30 gauge x 1/2" syringe See Rx Instructions .Route Qty: 100 5RF Rx Instructions: use with insulin sliding scale 3 times daily atorvastatin 80 mg tablet 80 mg PO QDAY Qty: 90 0RF glyburide 5 mg tablet 10 mg PO BID Qty: 360 1RF furosemide 40 mg tablet 40 mg PO BID Qty: 60 2RF spironolactone 25 mg tablet 25 mg PO BID Qty: 180 1RF Label Comments: TAKE ONE TABLET BY MOUTH TWICE DAILY insulin aspart U-100 100 unit/mL solution 1 sliding scale dose subcut TID Qty: 30 3RF Rx Instructions: Inject TID with meals per Sliding scale, if blood sugar greater than 400 call MD, Max 42 units per day. modafinil 100 mg tablet 100 mg PO QDAY PRN (Reason: narcolepsy) Qty: 30 0RF methocarbamol 750 mg tablet 750 mg PO TID Qty: 90 2RF hydrocodone-acetaminophen 10-325 mg tablet See Rx Instructions .ROUTE .COMPLEX PRN (Reason: pain) 30 Days Qty: 200 0RF Rx Instructions: PRN; 1-2 PO every 4 hours #200 must last for 30 days testosterone cypionate [Depo-Testosterone] 200 mg/mL oil 200 mg IM Q2W Qty: 2 4RF cholecalciferol (vitamin D3) 50 mcg (2,000 unit) tablet 50 mcg PO QDAY Qty: 30 3RF Hold Instructions: Doctor's Order nystatin 100,000 unit/gram powder 1 applic TOPICAL BID PRN potassium chloride 10 mEq capsule, extended release 10 meq PO TID Qty: 90 2RF (DME) oxygen See Rx Instructions .Route .MEDSUPPLY Qty: 1 12RF Rx Instructions: use at night dulaglutide 4.5 mg/0.5 mL pen injector 4.5 mg SUB-Q QWEEK Qty: 6 1RF clopidogrel [Plavix] 75 mg tablet 75 mg PO QDAY Qty: 90 1RF lisinopril 5 mg tablet 5 mg PO QDAY Qty: 90 1RF carvedilol 12.5 mg tablet 12.5 mg PO BID Qty: 180 1RF ropinirole 2 mg tablet 4 mg PO QDAY Qty: 180 1RF gabapentin 300 mg capsule 600 mg PO TID Qty: 540 1RF ciprofloxacin HCl 500 mg tablet 500 mg PO Q12H Qty: 20 0RF (DME) blood sugar diagnostic Strip MISCELLANEOUS
[2021-11-27 08:37] LABS: POC Calcium, Ionized 1.28 (1.16-1.32); POC Creatinine 1.3 (0.6-1.2); POC Potassium 5.2 (3.3-5.1)
[2021-11-27] MEDS ORDERED: ASPIRIN 81 MG TAB.CHEW CHEWED ONE (08:50)
[2021-11-27 09:23] LABS: Basophils # (Auto) 0.07 K/mcL (0.00-0.30); Basophils % (Auto) 0.5 % (0.0-2.0); Eosinophils # (Auto) 0.04 K/mcL (0.00-0.70); Eosinophils % (Auto) 0.3 % (0.0-7.0); Hematocrit 36.5 % (40.1-51.0); Hemoglobin 11.9 g/dL (13.7-17.5); Lymphocytes # (Auto) 1.13 K/mcL (1.50-4.80); Lymphocytes % (Auto) 7.7 % (15.5-49.0); Mean Cell Volume 91.9 fL (80.0-100.0); Mean Corpuscular HGB Conc 32.6 g/dL (31.0-36.0); Monocytes # (Auto) 0.83 K/mcL (0.10-0.90); Monocytes % (Auto) 5.7 % (1.0-12.0); Neutrophils % (Auto) 85.4 % (38.0-78.0); Platelet Count 248 K/mcL (140-440); RBC 3.97 M/mcL (4.63-6.08); WBC 14.7 K/mcL (4.5-11.0)
--- NOTE | 2021-11-27 09:45 | XRay Report ---
CLINICAL INFORMATION: Dyspnea COMPARISON: 10/27/2019 TECHNIQUE: Portable FINDINGS: The heart size, mediastinum and pulmonary vessels are unremarkable. Moderate patchy infiltrates present in both mid and lower lungs.. Small bilateral pleural effusions. The bones and soft tissues are within normal limits. IMPRESSION: Moderate patchy infiltrates both mid and lower lungs. Consider infection or aspiration. Interpreted and Authenticated by: Armand Vasquez 11/27/21
[2021-11-27] MEDS ORDERED: FUROSEMIDE 40 MG/4 ML VIAL IV ONE (09:47)
--- NOTE | 2021-11-27 10:43 | Cat Scan Report ---
CLINICAL INFORMATION: Dyspnea COMPARISON: Thoracic spine CT nearly one year prior 01/24/2021. Abdomen CT 01/28/2007 TECHNIQUE: 80ml of Isovue-370 were injected intravenously. Using SmartPrep to maximize pulmonary artery opacification, .625mm helical slices were obtained from the lung apices through the lung bases. Following reconstruction, 2.5 mm sagittal, coronal, and axial reformations were processed. The exam was reviewed at mediastinal, lung, and bone windows. The exam was performed using radiation dose optimization techniques including, but not limited to, automated exposure control, adjustment of the mA and/or kV according to patient size and use of iterative reconstruction technique. FINDINGS: Pulmonary parenchymal windows show moderate patchy groundglass airspace disease throughout both lower lobes, lingula and right middle lobe. There is also a nodular alveolar airspace disease in the periphery of the upper lobes. In addition, there is thickening of the interlobular septa round both lungs. All findings are new from the thoracic CT less than one year prior. Small bilateral pleural effusions are new. Mediastinal windows show mild cardiomegaly with moderately heavy fibrofatty calcific plaque in the mid and distal LAD and scattered within the circumflex and right coronary arteries. The thoracic aorta is normal diameter with diffuse intimal thickening. The pulmonary arteries are normal diameter [id number] evidence of pulmonary embolus. Scattered borderline enlarged lymph nodes, throughout the mediastinum, are unchanged from the prior CT. A few mildly enlarged lymph nodes in both hilar regions are new and likely represent benign reactive lymph nodes related to lung inflammation. The esophagus is grossly normal. Thyroid is unremarkable. Bones and soft tissues the chest wall show no abnormality. Images of the superior abdomen show 4.7 cm fat-containing mass in the left adrenal gland probably benign myolipoma. This is been stable since 2006. A second 1.2 cm benign myolipoma seen in the left adrenal gland genu which is also stable.. There appears to be an extremely vague mass in the posterior aspect of the superior right kidney which is incompletely imaged. This area was normal on the prior CT. There are also multiple small stones layering dependently within the gallbladder. IMPRESSION: 1. No evidence of pulmonary embolus. 2. Moderate patchy alveolar airspace disease throughout both lower lobes and, to a lesser extent, the right middle lobe and both upper lobes and lingula. In addition, there is thickening of interlobular septa. This may represent a combination of congestive heart failure and infection or aspiration. Please correlate with BNP and other clinical evidence for CHF. 3. Small bilateral pleural effusions. 4. Cholelithiasis-multiple small stones in the gallbladder 5. Suspect 9 cm mass superior pole the right kidney new from a [address] IVP for further evaluation. 6. 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 Interpreted and Authenticated by: Armand Vasquez 11/27/21
[2021-11-27] MEDS ORDERED: FUROSEMIDE 100 MG/10 ML VIAL IV ONE (13:36)
[2021-11-27] MEDS ORDERED: DEXTROSE 31 GM ORAL.SUSP PO PRN (13:37)
[2021-11-27] MEDS ORDERED: DEXTROSE 50% 50 ML VIAL IV PRN (13:37)
--- NOTE | 2021-11-27 13:44 | Internal Med History&Physical ---
HPI History of Present Illness Patient information: Note initiated : 11/27/21 at 1:39 pm Service Date, if different from initiated Date: [] Patient: Shamar Valenzuela 61 y/o M admitted on 11/27/21 for SOB . Chief Complaint: [Shortness of breath] Chief complaint: Shortness of breath History of present illness: Mr. Valenzuela is a 61 year old morbidly obese male with a complex past medical history significant for CAD, AJAY, narcolepsy on modafinil, hypothyroidism, and DM2 on insulin who presents to the hospital with progressive dyspnea. The patient states that he was recently at urgent care as he was complaining of dysuria and was prescribed ciprofloxacin. While at home, he continued to feel increasingly short of breath. Of note he uses supplemental O2 at night for obstructive sleep apnea and when he woke up this morning he decided to continue his O2 and increased the number of liters in order with his respirations. The patient's and family recommended that he come to the hospital for further management and evaluation. On arrival he was hemodynamically stable and afebrile. CTA was performed which was negative for PE. It was believed that he may have possible pneumonia and/or CHF exacerbation. The hospital service was asked admit the patient for further management evaluation. Review of Systems All systems: reviewed and no additional remarkable complaints except as stated Constitutional Constitutional: Present as per HPI EENT Eyes: Present as per HPI; Absent blurry vision Cardiovascular Cardiovascular: Present as per HPI; Absent chest pain, dyspnea, dyspnea on exertion, leg edema or palpatations Respiratory Respiratory: Present as per HPI and dyspnea; Absent cough, dyspnea on exertion, wheezing or stridor Gastrointestinal Gastrointestinal: Present as per HPI; Absent abdominal pain, diarrhea, dysphagia, hematemesis, melena, nausea or vomiting Musculoskeletal Musculoskeletal: Present as per HPI; Absent joint swelling, limited range of motion, muscle cramps, muscle weakness or myalgias Integumentary Integumentary: Present as per HPI; Absent erythema, new lesions, rash or wounds Neurological Neurological: Present as per HPI; Absent abnormal gait, behavioral changes, focal weakness, headache(s), loss of vision, numbness, sensory deficit or syncope Endocrine Endocrine: Absent change in body appearance, fatigue or heat intolerance Hematologic/Lymphatic Hematologic/Lymphatic: Present as per HPI PFSH PFSH All Active Problems (Updated 11/27/21 @ 13:51 by Mercedes Morales MD) Hypothyroidism (Acute) Morbid obesity (Acute) Bilateral pneumonia (Acute) Constipation (Chronic) History of surgery (Chronic) Bronchitis (Chronic) Low back pain (Chronic) History of headache (Chronic) Depression (Chronic) Indigestion (Chronic) SOB (shortness of breath) (Chronic) Bowel trouble (Chronic) High blood pressure (Chronic) Erectile dysfunction (Chronic) Cervical vertebral fracture (Chronic) Appendicitis (Chronic) Pyloric stenosis (Chronic) Onychomycosis (Chronic) Hypogonadism (Chronic) Macular edema (Chronic) Edema (Chronic) Vitreous hemorrhage, left eye (Chronic) Knee pain, right (Chronic) COPD (chronic obstructive pulmonary disease) (Chronic) Asthma (Chronic) CKD (chronic kidney disease) stage 3, GFR 30-59 ml/min (Chronic) Chronic pain (Chronic) Vitamin D deficiency (Chronic) Hypertriglyceridemia (Chronic) 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) History of colonoscopy (Chronic ~09/25/18) intermission coordinator (current) use of opiate analgesic (Chronic) AJAY (obstructive sleep apnea) (Chronic) Morbid obesity due to excess calories (Chronic) Foot callus (Acute) Noncompliance with diet and medication regimen (Chronic) Degenerative joint disease of thoracic spine (Acute) Degenerative joint disease (DJD) of lumbar spine (Acute) Stress (Chronic) Acute exacerbation of CHF (congestive heart failure) (Acute) Medical History Appendicitis 1979 Asthma Bowel trouble Bronchitis Dr Alvarez Cervical vertebral fracture 1983-Broken cervical vertabrae Chest discomfort Chest pain Chronic pain Constipation COPD (chronic obstructive pulmonary disease) Decreased testosterone level Depression Diabetes mellitus with microalbuminuric diabetic nephropathy Edema Erectile dysfunction Foot callus High blood pressure History of headache Hypertriglyceridemia Hypogonadism Indigestion Knee pain, right intermission coordinator (current) use of opiate analgesic Low back pain Dr [place] Macular edema Morbid obesity due to excess calories Noncompliance with diet and medication regimen Obesity due to excess calories Onychomycosis AJAY (obstructive sleep apnea) Did not tolerate BiPAP, currently wears oxygen at night Diagnosed around 2012 Osteomyelitis Prostate troubles Pyloric stenosis 1953 SOB (shortness of breath) Stress Vitamin D deficiency Vitreous hemorrhage, left eye Yeast infection of the skin Groin Surgical History History of colonoscopy (~09/25/18) History of surgery Stent placement 10/2013 Dr. Brizuela Needs Plavix x1 year Family History Mother Family history of thyroid problem Cancer Arthritis Osteoporosis Father Heart disease High blood pressure Social History marital status: occupational status: unemployed smoking status: Never smoker alcohol intake frequency: a few times a week seatbelt use: sometimes MEDS/ALLERGIES Home Medications and Allergies Home Medications Medication Instructions Recorded Confirmed Type blood sugar diagnostic 10/25/19 11/17/21 History cholecalciferol (vitamin D3) 50 50 mcg PO QDAY #30 tabs 04/06/20 11/17/21 Rx mcg (2,000 unit) tablet nystatin 100,000 unit/gram topical 1 applic topical BID PRN 01/19/21 11/17/21 History powder potassium chloride 10 mEq 10 meq PO TID #90 caps 01/19/21 11/17/21 Rx capsule,extended release levothyroxine 100 mcg capsule 100 mcg PO QAM #90 caps 03/12/21 11/17/21 Rx insulin glargine 100 unit/mL (3 32 unit (0.32 mL) subcut BID #60 mL 04/03/21 11/17/21 Rx mL) subcutaneous pen (Lantus Solostar U-100 Insulin) oxygen #1 ea 04/11/21 11/17/21 Rx insulin syringe-needle U-100 1 mL #100 ea 05/16/21 11/17/21 Rx 30 gauge x 1/2" carvedilol 12.5 mg tablet 12.5 mg PO BID #180 tabs 07/06/21 11/17/21 Rx clopidogrel 75 mg tablet (Plavix) 75 mg PO QDAY #90 tabs 07/06/21 11/17/21 Rx dulaglutide 4.5 mg/0.5 mL 4.5 mg (0.5 mL) subcut QWEEK #6 mL 07/06/21 11/17/21 Rx subcutaneous pen injector gabapentin 300 mg capsule 600 mg PO TID #540 caps 07/06/21 11/17/21 Rx lisinopril 5 mg tablet 5 mg PO QDAY #90 tabs 07/06/21 11/17/21 Rx ropinirole 2 mg tablet 4 mg PO QDAY #180 tabs 07/06/21 11/17/21 Rx atorvastatin 80 mg tablet 80 mg PO QDAY #90 tabs 07/12/21 11/17/21 Rx glyburide 5 mg tablet 10 mg PO BID #360 tabs 08/03/21 11/17/21 Rx furosemide 40 mg tablet 40 mg PO BID #60 tabs 08/29/21 11/17/21 Rx spironolactone 25 mg tablet 25 mg PO BID #180 tabs 09/20/21 11/17/21 Rx insulin aspart U-100 100 unit/mL 1 sliding scale dose subcut TID 10/04/21 11/17/21 Rx subcutaneous solution #30 mL modafinil 100 mg tablet 100 mg PO QDAY PRN narcolepsy #30 10/30/21 11/17/21 Rx tabs methocarbamol 750 mg tablet 750 mg PO TID Muscle Spasms #90 11/02/21 11/17/21 Rx tabs hydrocodone 10 mg-acetaminophen See Rx Instructions .Route 11/16/21 11/17/21 Rx 325 mg tablet .COMPLEX PRN pain 30 days #200 tabs testosterone cypionate 200 mg/mL 200 mg IM Q2W #2 mL 11/16/21 11/17/21 Rx intramuscular oil (Depo-Testosterone) ciprofloxacin HCl 500 mg tablet 500 mg PO Q12H #20 tabs 11/17/21 11/17/21 Rx Allergies Allergy/AdvReac Type Severity Reaction Status Date / Time hydromorphone [From Dilaudid] AdvReac Intermediate Seizure Verified 11/27/21 13:42 EXAM Constitutional Vitals: Temp Pulse Resp BP Pulse Ox O2 Del Method O2 Flow Rate 98.8 F 93 H 19 148/72 95 3 11/27/21 08:12 11/27/21 13:16 11/27/21 13:16 11/27/21 13:01 11/27/21 13:16 11/27/21 08:13 11/27/21 08:13 General appearance: average body habitus Head Head exam: Present atraumatic, normal inspection and normocephalic Eye Eye exam: Present EOMI, normal appearance and PERRL; Absent conjunctival injection ENT ENT exam: Present normal exam; Absent mucous membranes dry Neck Neck exam: Present full ROM; Absent lymphadenopathy Respiratory Respiratory exam: Present normal respiratory exam and CTAB; Absent decreased breath sounds, respiratory distress or wheezes Cardiovascular Cardiovascular exam: Present normal rate and rhythm and RRR; Absent JVD GI/Abdominal GI/Abdominal exam: Present normal bowel sounds and soft; Absent diminished bowel sounds, distended, guarding, mass, rebound or tenderness Neurological Exam Neurological exam: Present alert, CN II-XII intact and oriented X3 Psychiatric Psychiatric exam: Present normal affect and normal mood Skin Skin exam: Present intact and warm; Absent erythema, pallor, petechiae or rash DATA Data Completed and Pending Labs: Labs from last 24 hours 11/27/21 11/27/21 11/27/21 08:53 08:32 08:31 WBC 14.7 H RBC 3.97 L Hgb 11.9 L Hct 36.5 L POC Hct 35.0 L MCV 91.9 MCH 30.0 MCHC 32.6 RDW 13.0 Plt Count 248 MPV 10.0 Immature Gran % (Auto) 0.4 Neut % (Auto) 85.4 H Lymph % (Auto) 7.7 L [place] % (Auto) 5.7 Eos % (Auto) 0.3 Baso % (Auto) 0.5 Lymph # (Auto) 1.13 L [place] # (Auto) 0.83 Eos # (Auto) 0.04 Baso # (Auto) 0.07 Immature Gran # 0.06 H Absolute Neutrophils 12.59 H POC Sodium 138 POC Potassium 5.2 H POC Chloride 107 POC Total CO2 23.0 POC BUN 27 H POC Creatinine 1.3 H POC Glucose 255 H POC WB Ioniz Calcium 1.28 NT-Pro-B Natriuret Pep 2076.0 H POC Troponin I 11/27/21 08:28 WBC RBC Hgb Hct POC Hct MCV MCH MCHC RDW Plt Count MPV Immature Gran % (Auto) Neut % (Auto) Lymph % (Auto) [place] % (Auto) Eos % (Auto) Baso % (Auto) Lymph # (Auto) [place] # (Auto) Eos # (Auto) Baso # (Auto) Immature Gran # Absolute Neutrophils POC Sodium POC Potassium POC Chloride POC Total CO2 POC BUN POC Creatinine POC Glucose POC WB Ioniz Calcium NT-Pro-B Natriuret Pep POC Troponin I 0.01 L A/P Assessment and plan (1) SOB (shortness of breath): Status: Chronic (2) CKD (chronic kidney disease) stage 3, GFR 30-59 ml/min: Status: Chronic Qualifiers: Chronic kidney disease stage 3 subtype: stage 3a (GFR 45-59) Qualified Code(s): N18.31 - Chronic kidney disease, stage 3a (3) Diabetes mellitus with microalbuminuric diabetic nephropathy: Status: Chronic (4) Acute exacerbation of CHF (congestive heart failure): Status: Acute (5) Bilateral pneumonia: Status: Acute (6) Morbid obesity: Status: Acute (7) COPD (chronic obstructive pulmonary disease): Status: Chronic (8) Hypothyroidism: Status: Acute Narrative A/P Narrative: The patient is afebrile with an elevated white blood cell count of 14,000. I reviewed the CT findings personally and he has multilobar tree-in-bud opacities. We will start Zithromax and ceftriaxone. He may also have a component of heart failure exacerbation and he will be given Lasix 60 mg IV x1. We will follow-up on blood culture, urine culture. We will also obtain TTE. The patient will be monitored on telemetry. Of note, polypharmacy is a huge component as he is on modafinil which increases his heart rate and blood pressure. If he does have underlying heart failure exacerbation he may need better rate control and afterload reduction. Medication reconciliation is pending. Time Spent With Patient Time: Total time spent is greater than 50% in coordination of care (as documented) at patient's floor/unit and/or counseling patient: Total time spent with greater than 50% in coordination of care (as documented) at patient's floor/unit and/or counseling patient:: Greater than 70 minutes
[2021-11-27] MEDS ORDERED: ACETAMINOPHEN 325 MG TABLET PO PRN (14:01)
[2021-11-27] MEDS ORDERED: ONDANSETRON 4 MG/2 ML VIAL IV PRN (14:01)
[2021-11-27] MEDS ORDERED: cefTRIAXone 1 GM in DEXTROSE 5% IN WATER 50 ML IV SCH (14:01)
[2021-11-27] MEDS ORDERED: ALBUTEROL SULFATE 2.5 MG/3 ML NEBULIZER NEB PRN (14:01)
[2021-11-27] MEDS: HYDROcodone/APAP 10/325MG TABLET PO PRN ×2 (14:39→20:58)
[2021-11-27] MEDS: cefTRIAXone 1 GM VIAL IV SCH (14:49)
[2021-11-27] MEDS: AZITHROMYCIN 500 MG in DEXTROSE 5% IN WATER 250 ML IV SCH (16:09)
[2021-11-27] MEDS: INSULIN LISPRO 1 UNIT/0.01 ML UNIT SQ SCH ×2 (16:18→20:59)
[2021-11-27] MEDS: 0.9 % SODIUM CHLORIDE 10 ML SYRINGE IV SCH ×2 (16:19→21:00)
[2021-11-27] MEDS: GABAPENTIN 300 MG CAPSULE PO SCH (20:58)
[2021-11-27] MEDS: rOPINIRole 1 MG TABLET PO SCH (20:59)
[2021-11-27] MEDS: SENNOSIDES 1 TABLET PO SCH (21:00)
[2021-11-27] MEDS: CARVEDILOL 12.5 MG TABLET PO SCH (21:00)
[2021-11-27] MEDS: DOCUSATE SODIUM 100 MG CAPSULE PO SCH (21:00)
[2021-11-28] MEDS: 0.9 % SODIUM CHLORIDE 10 ML SYRINGE IV SCH ×3 (05:25→20:39)
[2021-11-28 06:51] LABS: Basophils # (Auto) 0.04 K/mcL (0.00-0.30); Basophils % (Auto) 0.4 % (0.0-2.0); Eosinophils # (Auto) 0.05 K/mcL (0.00-0.70); Eosinophils % (Auto) 0.5 % (0.0-7.0); Hemoglobin 11.6 g/dL (13.7-17.5); Lymphocytes # (Auto) 1.17 K/mcL (1.50-4.80); Lymphocytes % (Auto) 11.9 % (15.5-49.0); Mean Cell Volume 90.4 fL (80.0-100.0); Mean Corpuscular HGB Conc 33.1 g/dL (31.0-36.0); Monocytes # (Auto) 0.61 K/mcL (0.10-0.90); Monocytes % (Auto) 6.2 % (1.0-12.0); Neutrophils % (Auto) 80.6 % (38.0-78.0); Platelet Count 228 K/mcL (140-440); RBC 3.87 M/mcL (4.63-6.08); Red Cell Distribution Width 13.1 % (11.5-14.5); WBC 9.8 K/mcL (4.5-11.0)
[2021-11-28 07:14] LABS: Blood Urea Nitrogen 36 mg/dL (8-23); Calcium 9.4 mg/dL (8.6-10.4); Carbon Dioxide 25 mmol/L (22-30); Chloride 99 mmol/L (96-108); Glomerular Filtration Rate 49; Glucose 229 mg/dL (70-105)
[2021-11-28] MEDS: INSULIN LISPRO 1 UNIT/0.01 ML UNIT SQ SCH ×4 (08:07→20:38)
[2021-11-28] MEDS: LEVOTHYROXINE 100 MCG TABLET PO SCH (08:50)
[2021-11-28] MEDS: ATORVASTATIN 40 MG TABLET PO SCH (08:50)
[2021-11-28] MEDS: CARVEDILOL 12.5 MG TABLET PO SCH ×2 (08:51→20:39)
[2021-11-28] MEDS: GABAPENTIN 300 MG CAPSULE PO SCH ×3 (08:51→20:39)
[2021-11-28] MEDS: DOCUSATE SODIUM 100 MG CAPSULE PO SCH ×2 (08:51→20:39)
[2021-11-28] MEDS: CLOPIDOGREL 75 MG TABLET PO SCH (08:51)
[2021-11-28] MEDS: cefTRIAXone 1 GM VIAL IV SCH (08:52)
[2021-11-28] MEDS: ENOXAPARIN 40 MG/0.4 ML SYRINGE SQ SCH (08:53)
[2021-11-28] MEDS: HYDROcodone/APAP 10/325MG TABLET PO PRN ×4 (09:01→21:31)
[2021-11-28] MEDS: AZITHROMYCIN 500 MG in DEXTROSE 5% IN WATER 250 ML IV SCH (10:32)
--- NOTE | 2021-11-28 11:52 | Internal Med Progress Note ---
SUBJECTIVE Subjective Patient information: Note initiated : 11/28/21 at 11:50 am Service Date, if different from initiated Date: [] Patient: Shamar Valenzuela 61 y/o M admitted on 11/27/21 for SOB . Chief Complaint: [SOB] Principal diagnosis: Progressive dyspnea Interval history: The patient was resting comfortably in bed. He states that he is feeling better. His breathing has improved. RN was present at the bedside to discuss the case. Constitutional Vitals: Vital Signs Temp Pulse Resp BP Pulse Ox O2 Del Method O2 Flow Rate 97.7 F 67 14 106/57 97 3 11/28/21 11:41 11/28/21 11:41 11/28/21 11:41 11/28/21 11:41 11/28/21 11:41 11/28/21 11:41 11/28/21 11:41 Period Temp Pulse Resp BP Sys/Dimas Pulse Ox O2 Del Method O2 Flow Rate Last 24 Hr 96.9 F-99.3 F 63-94 13-23 106-155/57-87 93-100 Nasal Cannula- Nasal Cannula 2-3 Intake and Output 11/27/21 11/28/21 11/28/21 21:59 05:59 13:59 Intake Total 730 400 200 Output Total 500 450 Balance 230 400 -250 Weight 119.249 kg Intake & Output: Intake & Output 11/27/21 11/28/21 11/28/21 21:59 05:59 13:59 Intake Total 730 400 200 Output Total 500 450 Balance 230 400 -250 Weight 119.249 kg Intake: IV 250 Zithromax 500 mg In Dextrose 5% 250 in Water 250 ml @ 250 mls/hr IV Q24H [facility] Rx#:[id number] Oral 480 400 200 Output: Void Amount 500 450 Other: Meal Dinner Breakfast Percent of Meal Consumed 100% 100% Feeding Ability Independent Independent Urine Appearance Clear Clear Urine Color Yellow Dark Yellow Urine Odor Normal Head Head exam: Present atraumatic and normal inspection Eye Eye exam: Present normal appearance ENT ENT exam: Present mucous membranes moist, normal exam and normal external ear exam Neck Neck exam: Present normal inspection Respiratory Respiratory exam: Present normal respiratory exam Cardiovascular Cardiovascular exam: Present normal rate and rhythm GI/Abdominal GI/Abdominal exam: Present normal bowel sounds Back Exam Back exam: Present normal inspection Neurological Exam Neurological exam: Present alert and oriented X3 Skin Skin exam: Present intact and warm OBJ DATA Labs CBC & Chem 7: 11/28/21 05:39 11/28/21 05:39 Labs: Abnormal Lab Results 11/28/21 11/28/21 11/27/21 05:39 05:39 08:53 WBC RBC 3.87 L Hgb 11.6 L Hct 35.0 L POC Hct Neut % (Auto) 80.6 H Lymph % (Auto) 11.9 L Lymph # (Auto) 1.17 L Immature Gran # Absolute Neutrophils POC Potassium POC BUN BUN 36 H Creatinine 1.5 H POC Creatinine Glucose 229 H POC Glucose C-Reactive Protein 14.50 H NT-Pro-B Natriuret Pep 2076.0 H POC Troponin I 11/27/21 11/27/21 11/27/21 08:32 08:31 08:28 WBC 14.7 H RBC 3.97 L Hgb 11.9 L Hct 36.5 L POC Hct 35.0 L Neut % (Auto) 85.4 H Lymph % (Auto) 7.7 L Lymph # (Auto) 1.13 L Immature Gran # 0.06 H Absolute Neutrophils 12.59 H POC Potassium 5.2 H POC BUN 27 H BUN Creatinine POC Creatinine 1.3 H Glucose POC Glucose 255 H C-Reactive Protein NT-Pro-B Natriuret Pep POC Troponin I 0.01 L Meds: Medications Acetaminophen (Acetaminophen 325 Mg Tablet) 650 mg PO Q6HP PRN; Protocol PRN Reason: Per Pain Protocol/Fever > 101 Hydrocodone Bitart/Acetaminophen (Hydrocodone/Apap 10/325mg Tablet) 1 - 2 tab PO Q4HP PRN; Protocol PRN Reason: Per Pain Protocol Last Admin: 11/28/21 09:01 Dose: 2 tab Albuterol Sulfate (Albuterol Sulfate 2.5 Mg/3 Ml Nebulizer) 2.5 mg NEB Q2HP PRN PRN Reason: Shortness Of Breath Atorvastatin Calcium (Atorvastatin 40 Mg Tablet) 80 mg PO QDAY [facility] Last Admin: 11/28/21 08:50 Dose: 80 mg Carvedilol (Carvedilol 12.5 Mg Tablet) 12.5 mg PO BID [facility] Last Admin: 11/28/21 08:51 Dose: 12.5 mg Ceftriaxone Sodium (Ceftriaxone 1 Gm Vial) 1 gm IV Q24H [facility] Last Admin: 11/28/21 08:52 Dose: 1 gm Clopidogrel Bisulfate (Clopidogrel 75 Mg Tablet) 75 mg PO QDAY [facility] Last Admin: 11/28/21 08:51 Dose: 75 mg Dextrose (Dextrose 50% 50 Ml Vial) 0 ml IV UD PRN PRN Reason: Per Sliding Scale Diagnostic Test (Pha) (Accu-Chek 1 Each Strip) 1 each FS [facility] Last Admin: 11/28/21 11:28 Dose: 1 each Docusate Sodium (Docusate Sodium 100 Mg Capsule) 100 mg PO BID [facility] Last Admin: 11/28/21 08:51 Dose: 100 mg Enoxaparin Sodium (Enoxaparin 40 Mg/0.4 Ml Syringe) 40 mg SQ DAILY [facility] Last Admin: 11/28/21 08:53 Dose: 40 mg Gabapentin (Gabapentin 300 Mg Capsule) 600 mg PO TID [facility] Last Admin: 11/28/21 08:51 Dose: 600 mg Glucose (Dextrose 31 Gm Oral.Susp) 15 gm PO PRN PRN PRN Reason: Hypoglycemia Azithromycin 500 mg/ Dextrose 250 mls @ 250 mls/hr IV Q24H [facility]; Protocol Stop: 11/29/21 15:59 Last Admin: 11/28/21 10:32 Dose: 250 mls/hr Insulin Human Lispro (Insulin Lispro 1 Unit/0.01 Ml Unit) 0 unit SQ [facility]; Protocol Last Admin: 11/28/21 11:34 Dose: 15 unit Levothyroxine Sodium (Levothyroxine 100 Mcg Tablet) 100 mcg PO QAM [facility] Last Admin: 11/28/21 08:50 Dose: 100 mcg Ondansetron HCl (Ondansetron 4 Mg/2 Ml Vial) 4 mg IV Q6HP PRN PRN Reason: Nausea And Vomiting Ropinirole HCl (Ropinirole 1 Mg Tablet) 4 mg PO QHS [facility] Last Admin: 11/27/21 20:59 Dose: 4 mg Senna (Sennosides 1 Tablet) 2 tab PO [facility] Last Admin: 11/27/21 21:00 Dose: Not Given Sodium Chloride (0.9 % Sodium Chloride 10 Ml Syringe) 10 ml IV Q8 [facility] Last Admin: 11/28/21 05:25 Dose: 10 ml A/P Assessment and plan (1) SOB (shortness of breath): Status: Chronic (2) CKD (chronic kidney disease) stage 3, GFR 30-59 ml/min: Status: Chronic Qualifiers: Chronic kidney disease stage 3 subtype: stage 3a (GFR 45-59) Qualified Code(s): N18.31 - Chronic kidney disease, stage 3a (3) Diabetes mellitus with microalbuminuric diabetic nephropathy: Status: Chronic (4) Acute exacerbation of CHF (congestive heart failure): Status: Acute (5) Bilateral pneumonia: Status: Acute (6) Morbid obesity: Status: Acute (7) COPD (chronic obstructive pulmonary disease): Status: Chronic (8) Hypothyroidism: Status: Acute Narrative A/P Narrative: The patient is afebrile with an elevated white blood cell count of 14,000. I reviewed the CT findings personally and he has multilobar tree-in-bud opacities. We will start Zithromax and ceftriaxone. He may also have a component of heart failure exacerbation and he will be given Lasix 60 mg IV x1. We will follow-up on blood culture, urine culture. We will also obtain TTE. The patient will be monitored on telemetry. Of note, polypharmacy is a huge component as he is on modafinil which increases his heart rate and blood pressure. If he does have underlying heart failure exacerbation he may need better rate control and afterload reduction. Medication reconciliation is pending. 11/28: The patient's white blood cell count has improved from 14.7 and is now 9.8. He remains afebrile. His dyspnea was likely due to bilateral pneumonia. We will continue ceftriaxone and Zithromax. The patient is fully independent and does not require PT/OT eval. He will have a home O2 eval prior to discharge likely tomorrow morning. Time Spent With Patient Time: Total time spent is greater than 50% in coordination of care (as documented) at patient's floor/unit and/or counseling patient: Total time spent with greater than 50% in coordination of care (as documented) at patient's floor/unit and/or counseling patient:: 25 - 35 minutes QUALITY VTE Deep Vein Thrombosis/Pulmonary Embolism Present on Admission: No
[2021-11-28] MEDS: SENNOSIDES 1 TABLET PO SCH (20:39)
[2021-11-28] MEDS: rOPINIRole 1 MG TABLET PO SCH (20:39)
[2021-11-29] MEDS: HYDROcodone/APAP 10/325MG TABLET PO PRN ×2 (01:39→07:26)
[2021-11-29] MEDS: 0.9 % SODIUM CHLORIDE 10 ML SYRINGE IV SCH (05:51)
[2021-11-29] MEDS: INSULIN LISPRO 1 UNIT/0.01 ML UNIT SQ SCH ×2 (07:43→11:21)
[2021-11-29] MEDS: ATORVASTATIN 40 MG TABLET PO SCH (08:24)
[2021-11-29] MEDS: LEVOTHYROXINE 100 MCG TABLET PO SCH (08:24)
[2021-11-29] MEDS: CLOPIDOGREL 75 MG TABLET PO SCH (08:24)
[2021-11-29] MEDS: DOCUSATE SODIUM 100 MG CAPSULE PO SCH (08:24)
[2021-11-29] MEDS: CARVEDILOL 12.5 MG TABLET PO SCH (08:24)
[2021-11-29] MEDS: GABAPENTIN 300 MG CAPSULE PO SCH (08:25)
[2021-11-29] MEDS: ENOXAPARIN 40 MG/0.4 ML SYRINGE SQ SCH (08:25)
[2021-11-29] MEDS: cefTRIAXone 1 GM VIAL IV SCH (08:36)
[2021-11-29] MEDS: AZITHROMYCIN 500 MG in DEXTROSE 5% IN WATER 250 ML IV SCH (09:47)
--- NOTE | 2021-11-29 11:33 | Discharge Summary ---
Discharge Provider Provider IMPORTANT FOLLOW-UP INFORMATION FOR PCP: 1. Repeat home O2 eval 2. Follow up with cardiology 3. Re-eval home med rec Patient information: Note initiated : 11/29/21 at 11:32 am Service Date, if different from initiated Date: [] Patient: Shamar Valenzeula 61 y/o M admitted on 11/27/21 for SOB . Chief Complaint: [] Date of admission: 11/27/21 13:25 Discharge date: 11/29/21 Primary care physician: Israel Sung MD Consults: 11/27/21 Consult to Physician [CONS] Stat Comment: Consulting Provider: Mercedes Morales Reason For Exam: Physician to Consult Attending physician on discharge: Mercedes Morales COURSE Hospital Course Hospital course: History of present illness: Mr. Valenzuela is a 61 year old morbidly obese male with a complex past medical history significant for CAD, AJAY, narcolepsy on modafinil, hypothyroidism, and DM2 on insulin who presents to the hospital with progressive dyspnea. The patient states that he was recently at urgent care as he was complaining of dysuria and was prescribed ciprofloxacin. While at home, he continued to feel increasingly short of breath. Of note he uses supplemental O2 at night for obstructive sleep apnea and when he woke up this morning he decided to continue his O2 and increased the number of liters in order with his respirations. The patient's and family recommended that he come to the hospital for further management and evaluation. On arrival he was hemodynamically stable and afebrile. CTA was performed which was negative for PE. It was believed that he may have possible pneumonia and/or CHF exacerbation. The hospital service was asked admit the patient for further management evaluation. The patient is afebrile with an elevated white blood cell count of 14,000. I reviewed the CT findings personally and he has multilobar tree-in-bud opacities. We will start Zithromax and ceftriaxone. He may also have a component of heart failure exacerbation and he will be given Lasix 60 mg IV x1. We will follow-up on blood culture, urine culture. We will also obtain TTE. The patient will be monitored on telemetry. Of note, polypharmacy is a huge component as he is on modafinil which increases his heart rate and blood pressure. If he does have underlying heart failure exacerbation he may need better rate control and afterload reduction. Medication reconciliation is pending. 11/28: The patient's white blood cell count has improved from 14.7 and is now 9.8. He remains afebrile. His dyspnea was likely due to bilateral pneumonia. We will continue ceftriaxone and Zithromax. The patient is fully independent and does not require PT/OT eval. He will have a home O2 eval prior to discharge likely tomorrow morning. 11/29: The patient is feeling much better after he was treated for community- acquired pneumonia with IV ceftriaxone and IV Zithromax. He was given an additional one-time dose of Lasix 60 mg IV during admission. The patient is on home O2 at night but will likely require it during the day as well. He will need to follow-up with his primary care physician in 1 week's time. He is agreeable and eager to return home today. Discharge diagnosis: Community-acquired pneumonia, acute hypoxemic respiratory failure Time Spent with Patient Time attestation: Total time spent providing and/or coordinating discharge services: Time spent: Greater than 30 minutes EXAM Constitutional Vitals: Temp Pulse Resp BP Pulse Ox O2 Del Method O2 Flow Rate 97.6 F 63 14 139/61 100 2 11/29/21 11:13 11/29/21 11:13 11/29/21 11:13 11/29/21 11:13 11/29/21 11:13 11/29/21 11:13 11/29/21 11:13 General appearance: average body habitus Head Head exam: Present atraumatic, normal inspection and normocephalic Eye Eye exam: Present EOMI, normal appearance and PERRL; Absent conjunctival injection ENT ENT exam: Present normal exam; Absent mucous membranes dry Neck Neck exam: Present full ROM; Absent lymphadenopathy Respiratory Respiratory exam: Present normal respiratory exam and CTAB; Absent decreased breath sounds, respiratory distress or wheezes Cardiovascular Cardiovascular exam: Present normal rate and rhythm and RRR; Absent JVD GI/Abdominal GI/Abdominal exam: Present normal bowel sounds and soft; Absent diminished bowel sounds, distended, guarding, mass, rebound or tenderness Neurological Exam Neurological exam: Present alert, CN II-XII intact and oriented X3 Psychiatric Psychiatric exam: Present normal affect and normal mood Skin Skin exam: Present intact and warm; Absent erythema, pallor, petechiae or rash Discharge Data Data Completed and Pending Labs on day of discharge: Preliminary micro results at discharge 11/28/21 05:44 Blood Culture - Preliminary Blood 11/28/21 05:39 Blood Culture - Preliminary Blood Discharge Plan Patient/Caregiver Discharge Instructions Activity: increase activity as tolerated Diet: Regular Diet Instructions: Bacterial Pneumonia (DC) Prescriptions: New azithromycin [Zithromax] 250 mg tablet 250 mg PO QDAY 3 Days Qty: 3 0RF Rx Instructions: start on day 2 of therapy Continued levothyroxine 100 mcg capsule 100 mcg PO QAM Qty: 90 1RF Lantus Solostar U-100 Insulin 100 unit/mL (3 mL) insulin pen 32 unit subcut BID Qty: 60 1RF (DME) insulin syringe-needle U-100 1 mL 30 gauge x 1/2" syringe See Rx Instructions .Route Qty: 100 5RF Rx Instructions: use with insulin sliding scale 3 times daily atorvastatin 80 mg tablet 80 mg PO QDAY Qty: 90 0RF glyburide 5 mg tablet 10 mg PO BID Qty: 360 1RF furosemide 40 mg tablet 40 mg PO BID Qty: 60 2RF spironolactone 25 mg tablet 25 mg PO BID Qty: 180 1RF Label Comments: TAKE ONE TABLET BY MOUTH TWICE DAILY insulin aspart U-100 100 unit/mL solution 1 sliding scale dose subcut TID Qty: 30 3RF Rx Instructions: Inject TID with meals per Sliding scale, if blood sugar greater than 400 call MD, Max 42 units per day. modafinil 100 mg tablet 100 mg PO QDAY PRN (Reason: narcolepsy) Qty: 30 0RF methocarbamol 750 mg tablet 750 mg PO TID Qty: 90 2RF hydrocodone-acetaminophen 10-325 mg tablet See Rx Instructions .ROUTE .COMPLEX PRN (Reason: pain) 30 Days Qty: 200 0RF Rx Instructions: PRN; 1-2 PO every 4 hours #200 must last for 30 days testosterone cypionate [Depo-Testosterone] 200 mg/mL oil 200 mg IM Q2W Qty: 2 4RF cholecalciferol (vitamin D3) 50 mcg (2,000 unit) tablet 50 mcg PO QDAY Qty: 30 3RF Hold Instructions: Doctor's Order potassium chloride 10 mEq capsule, extended release 10 meq PO TID Qty: 90 2RF (DME) oxygen See Rx Instructions .Route .MEDSUPPLY Qty: 1 12RF Rx Instructions: use at night dulaglutide 4.5 mg/0.5 mL pen injector 4.5 mg SUB-Q QWEEK Qty: 6 1RF clopidogrel [Plavix] 75 mg tablet 75 mg PO QDAY Qty: 90 1RF lisinopril 5 mg tablet 5 mg PO QDAY Qty: 90 1RF carvedilol 12.5 mg tablet 12.5 mg PO BID Qty: 180 1RF gabapentin 300 mg capsule 600 mg PO TID Qty: 540 1RF (DME) blood sugar diagnostic Strip MISCELLANEOUS ropinirole 2 mg tablet 4 mg PO QHS Discontinued ciprofloxacin HCl 500 mg tablet 500 mg PO Q12H Qty: 20 0RF Follow Up Plan Follow up with: Israel Sung MD [Primary Care Provider] - Patient Disposition: Home, Self-Care Prognosis: Fair Rehab Potential: Good I certify that the patient requires SNF services: No Overall status at discharge: patient is not back to baseline Discharge Orders: Discharge Order (Routine); Ordered 11/29/21 Ordered By: Mercedes WHITEHEAD VTE Deep Vein Thrombosis/Pulmonary Embolism Present on Admission: No
== END 2021-11-29 13:25 | disposition home or self-care (01) | DRG 193 ==
LOC: ED 08:12 → MEDSUR 13:25
PROVIDERS: ADMIT Student in an Organized Health Care Education/Training Program; ATTEND Student in an Organized Health Care Education/Training Program

== ENCOUNTER 2022-05-24 10:37 | Inpatient (IN) ==
--- NOTE | 2022-05-24 11:23 | Emergency Department Note ---
HPI General Chief complaint: Skin/Abscess/Rash Stated complaint: Right foot wound Time Seen by Provider: 05/24/22 11:22 Source: patient Mode of arrival: wheelchair Limitations: no limitations History of Present Illness HPI Narrative: Narrative: Patient is a 61-year-old male with a complex history, but importantly has a history of uncontrolled diabetes who presents to the emergency department due to right big toe wound. He states that he dropped a large motor on his toe a day and a half ago. Since then he states that he has had developing redness around the wound, drainage, and foul odor. Patient initially went to see Dr. Ceballos, but after Dr. Ceballos saw his wound he decided to send him to the emergency department. I did speak to During he states that he was concerned about potential osteomyelitis. 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 Patient denies any other symptoms. Related Data Home Medications Medication Instructions Recorded Confirmed blood sugar diagnostic 10/25/19 05/24/22 Previous Rx's Medication Instructions Recorded cholecalciferol (vitamin D3) 50 50 mcg PO QDAY #30 tabs 04/06/20 mcg (2,000 unit) tablet levothyroxine 100 mcg capsule 100 mcg PO QAM #90 caps 03/12/21 oxygen #1 ea 04/11/21 insulin syringe-needle U-100 1 mL #100 ea 05/16/21 30 gauge x 1/2" carvedilol 12.5 mg tablet 12.5 mg PO BID #180 tabs 07/06/21 dulaglutide 4.5 mg/0.5 mL 4.5 mg (0.5 mL) subcut QWEEK #6 mL 07/06/21 subcutaneous pen injector glyburide 5 mg tablet 10 mg PO BID #360 tabs 08/03/21 insulin aspart U-100 100 unit/mL 1 sliding scale dose subcut TID 10/04/21 subcutaneous solution #30 mL testosterone cypionate 200 mg/mL 200 mg IM Q2W #2 mL 11/16/21 intramuscular oil (Depo-Testosterone) gabapentin 300 mg capsule 600 mg PO TID #540 caps 01/01/22 lisinopril 5 mg tablet 5 mg PO QDAY #90 tabs 01/01/22 methocarbamol 750 mg tablet 750 mg PO TID Muscle Spasms #90 03/13/22 tabs furosemide 40 mg tablet 40 mg PO BID #180 tabs 03/15/22 atorvastatin 80 mg tablet 80 mg PO QDAY #90 tabs 04/09/22 modafinil 100 mg tablet 100 mg PO QDAY PRN narcolepsy #30 04/30/22 tabs clopidogrel 75 mg tablet (Plavix) 75 mg PO QDAY #90 tabs 05/02/22 ropinirole 2 mg tablet 4 mg PO QHS #180 tabs 05/02/22 hydrocodone 10 mg-acetaminophen See Rx Instructions .Route 05/15/22 325 mg tablet .COMPLEX PRN pain 30 days #200 tabs hydrocodone 10 mg-acetaminophen 1 - 2 tab PO Q4HP PRN Per Pain 05/25/22 325 mg tablet Protocol #20 tabs penicillin V potassium 250 mg 500 mg PO QID #40 tabs 05/25/22 tablet Allergies Allergy/AdvReac Type Severity Reaction Status Date / Time hydromorphone [From Dilaudid] AdvReac Intermediate Seizure Verified 05/24/22 10:14 Review of Systems ROS ROS Narrative: Narrative: Constitutional: Denies fever or weakness Eyes: Denies eye pain or vision change ENT ED: Denies throat pain or rhinorrhea Cardiovascular: Denies chest pain or edema Respiratory: Denies shortness of breath or cough Gastrointestinal: Denies abdominal pain, nausea, vomiting, diarrhea, constipation, hematochezia or melena Genitourinary: Denies dysuria, frequency, hematuria or incontinence Musculoskeletal: Reports other (Big toe pain on the right); Denies back pain or myalgia Integumentary: Reports change in color; Denies rash or lesions Neurological: Denies headache, weakness, numbness, confusion, abnormal gait or dizziness Endocrine: Denies fatigue or polyuria PFSH Narrative Patient History Narrative: Narrative: Medical/Surgical/Family History All Active Problems (Updated 05/25/22 @ 11:03 by Uche Brice MD) Constipation (Chronic) History of surgery (Chronic) Bronchitis (Chronic) Low back pain (Chronic) History of headache (Chronic) Depression (Chronic) Indigestion (Chronic) SOB (shortness of breath) (Chronic) Bowel trouble (Chronic) High blood pressure (Chronic) Erectile dysfunction (Chronic) Cervical vertebral fracture (Chronic) Appendicitis (Chronic) Pyloric stenosis (Chronic) Onychomycosis (Chronic) Hypogonadism (Chronic) Macular edema (Chronic) Edema (Chronic) Vitreous hemorrhage, left eye (Chronic) Knee pain, right (Chronic) COPD (chronic obstructive pulmonary disease) (Chronic) Asthma (Chronic) CKD (chronic kidney disease) stage 3, GFR 30-59 ml/min (Chronic) Chronic pain (Chronic) Vitamin D deficiency (Chronic) Hypertriglyceridemia (Chronic) 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) 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) use of opiate analgesic (Chronic) AJAY (obstructive sleep apnea) (Chronic) Morbid obesity due to excess calories (Chronic) Foot callus (Acute) Noncompliance with diet and medication regimen (Chronic) Degenerative joint disease of thoracic spine (Acute) Degenerative joint disease (DJD) of lumbar spine (Acute) Stress (Chronic) Acute exacerbation of CHF (congestive heart failure) (Acute) Morbid obesity (Acute) Hypothyroidism (Acute) Renal mass, right (Acute) Exposure to COVID-19 virus (Acute) Left hip pain (Acute) Renal mass (Chronic) Anemia (Acute) Wound, open, toe (Acute) Osteomyelitis (Acute) Open toe wound (Acute) Diabetes mellitus with neuropathy (Acute) Medical History (Updated 05/25/22 @ 11:03 by Uche Brice MD) Anemia Appendicitis 1979 Asthma Bowel trouble Bronchitis Dr Alvarez Cervical vertebral fracture 1983-Broken cervical vertabrae Chest discomfort Chest pain Chronic pain Constipation COPD (chronic obstructive pulmonary disease) Decreased testosterone level Depression Diabetes mellitus with microalbuminuric diabetic nephropathy Diabetes mellitus with neuropathy Edema Erectile dysfunction Foot callus High blood pressure History of headache Hypertriglyceridemia Hypogonadism Indigestion Knee pain, right Left hip pain senior care (current) use of opiate analgesic Low back pain Dr Hermosillo Macular edema Morbid obesity due to excess calories Noncompliance with diet and medication regimen Obesity due to excess calories Onychomycosis AJAY (obstructive sleep apnea) Did not tolerate BiPAP, currently wears oxygen at night Diagnosed around 2012 Osteomyelitis Prostate troubles Pyloric stenosis 1953 Renal mass Renal mass, right SOB (shortness of breath) Stress Vitamin D deficiency Vitreous hemorrhage, left eye Wound, open, toe Yeast infection of the skin Groin Surgical History History of colonoscopy (~09/25/18) History of surgery Stent placement 10/2013 Dr. Brizuela Needs Plavix x1 year Family History Mother Family history of thyroid problem Cancer Arthritis Osteoporosis Father Heart disease High blood pressure Social History Smoking Status: Never smoker Alcohol Intake Frequency: a few times a week Exam Narrative Narrative: Narrative: General Limitations: no limitations General appearance: Present alert and in no apparent distress; Absent anxious, appears intoxicated or sleepy Head Head: Present atraumatic and normocephalic Eye Eye: Present EOMI; Absent scleral icterus or nystagmus ENT ENT: Present mucous membranes moist; Absent nasal congestion Neck Neck: Present full ROM; Absent tenderness Chest Chest: Present normal inspection and symmetric chest wall rise; Absent tenderness Respiratory Respiratory: Present normal lung sounds bilaterally; Absent respiratory distress or accessory muscle use Cardiovascular Cardiovascular: Present regular rate, normal rhythm and normal heart sounds Adbominal Abdominal: Present soft; Absent distention Extremities Extremities: Present normal inspection, full ROM and other (Large wound covering approximately half of the top of the great toe on the right); Absent tenderness, pedal edema or pretibial edema Back Back: Present normal inspection and full ROM Neurological Neurological: Present alert and oriented X3 Psychiatric Psychiatric: Present normal affect and normal mood Skin Skin: Present warm (WNL), dry and erythema; Absent intact Course Vital Signs Vital signs: Vital Signs Temperature 95.9 F L 05/24/22 10:42 Pulse Rate 89 05/24/22 10:42 Respiratory Rate 18 05/24/22 10:42 Blood Pressure 157/65 05/24/22 10:42 Pulse Oximetry (%) 96 05/24/22 10:42 Oxygen Delivery Method Room Air 05/24/22 10:42 Temperature 97.6 F 05/25/22 08:47 Pulse Rate 73 05/25/22 08:47 Respiratory Rate 20 05/25/22 08:47 Blood Pressure 133/55 05/25/22 08:47 Pulse Oximetry (%) 99 05/25/22 08:47 Oxygen Delivery Method Nasal Cannula 05/25/22 08:41 Oxygen Flow Rate (L/min) 1 05/25/22 08:41 MDM MDM Narrative Medical decision making narrative: Narrative: Patient is a 61-year-old male with a complex history, but importantly has a history of uncontrolled diabetes who presents to the emergency department due to right big toe wound. I did speak to Dr. Trejo about this patient, and he is concerned about osteomyelitis. I am also concerned about this given the appearance of his wound, description of drainage, and foul odor. Labs and MRI have been ordered. We attempted to contact Dr. Morales, but unfortunately were unable to reach him. I then spoke to Dr. Griffin with orthopedics about patient, and he agreed to see patient. After Dr. Griffin had seen patient he requested an admission. Lab Data 05/24/22 13:04 05/24/22 13:40 Labs: Lab Results 05/24/22 05/24/22 05/24/22 Range/Units 12:45 13:04 13:06 WBC 16.3 H (4.5-11.0) K/mcL RBC 3.55 L (4.63-6.08) M/mcL Hgb 10.4 L (13.7-17.5) g/dL Hct 32.1 L (40.1-51.0) % POC Hct 32.0 L (41-55) MCV 90.4 (80.0-100.0) fL MCH 29.3 (26.0-34.0) pg MCHC 32.4 (31.0-36.0) g/dL RDW 13.0 (11.5-14.5) % Plt Count 336 (140-440) K/mcL MPV 9.3 (8.8-12.5) fL Immature Gran % (Auto) 0.5 (0.0-0.5) % Neut % (Auto) 87.0 H (38.0-78.0) % Lymph % (Auto) 6.2 L (15.5-49.0) % [place] % (Auto) 5.8 (1.0-12.0) % Eos % (Auto) 0.3 (0.0-7.0) % Baso % (Auto) 0.2 (0.0-2.0) % Lymph # (Auto) 1.01 L (1.50-4.80) K/mcL [place] # (Auto) 0.95 H (0.10-0.90) K/mcL Eos # (Auto) 0.05 (0.00-0.70) K/mcL Baso # (Auto) 0.04 (0.00-0.30) K/mcL Immature Gran # 0.08 H (0.00-0.05) K/mcl Absolute Neutrophils 14.13 H (1.80-8.00) K/mcL ESR (0-20) mm/hr PT 15.0 H (11.9-14.5) sec INR 1.1 (0.9-1.1) POC Sodium 137 (133-145) POC Potassium 5.8 H (3.3-5.1) Potassium (3.3-5.1) mmol/L POC Chloride 103 (96-108) POC Total CO2 28.0 (22-30) POC BUN 51 H (6-20) POC Creatinine 1.7 H (0.6-1.2) POC Glucose 238 H (70-105) POC WB Ioniz Calcium 1.12 L (1.16-1.32) C-Reactive Protein (0.03-0.80) mg/dL Urine Color Urine Appearance (Clear) Urine pH (5.0-9.0) Ur Specific [place] (1.000-1.035) Urine Protein (Negative) mg/dL Urine Glucose (UA) (Negative) mg/dL Urine Ketones (Negative) mg/dL Urine Occult Blood (Negative) derrek/mcL Urine Nitrate (Negative) Urine Bilirubin (Negative) mg/dL Urine Urobilinogen mg/dL Ur Leukocyte Esterase (Negative) /uL Urine RBC (0-3) /hpf Urine WBC (0-4) /hpf Ur Squamous Epith Cells (0-4) /hpf Urine Bacteria (0) /hpf Ur Culture Indicated? 05/24/22 05/24/22 05/24/22 Range/Units 13:13 13:13 13:40 WBC (4.5-11.0) K/mcL RBC (4.63-6.08) M/mcL Hgb (13.7-17.5) g/dL Hct (40.1-51.0) % POC Hct (41-55) MCV (80.0-100.0) fL MCH (26.0-34.0) pg MCHC (31.0-36.0) g/dL RDW (11.5-14.5) % Plt Count (140-440) K/mcL MPV (8.8-12.5) fL Immature Gran % (Auto) (0.0-0.5) % Neut % (Auto) (38.0-78.0) % Lymph % (Auto) (15.5-49.0) % [place] % (Auto) (1.0-12.0) % Eos % (Auto) (0.0-7.0) % Baso % (Auto) (0.0-2.0) % Lymph # (Auto) (1.50-4.80) K/mcL [place] # (Auto) (0.10-0.90) K/mcL Eos # (Auto) (0.00-0.70) K/mcL Baso # (Auto) (0.00-0.30) K/mcL Immature Gran # (0.00-0.05) K/mcl Absolute Neutrophils (1.80-8.00) K/mcL ESR 64 H (0-20) mm/hr PT (11.9-14.5) sec INR (0.9-1.1) POC Sodium (133-145) POC Potassium (3.3-5.1) Potassium 5.9 H* (3.3-5.1) mmol/L POC Chloride (96-108) POC Total CO2 (22-30) POC BUN (6-20) POC Creatinine (0.6-1.2) POC Glucose (70-105) POC WB Ioniz Calcium (1.16-1.32) C-Reactive Protein 5.50 H (0.03-0.80) mg/dL Urine Color Urine Appearance (Clear) Urine pH (5.0-9.0) Ur Specific [place] (1.000-1.035) Urine Protein (Negative) mg/dL Urine Glucose (UA) (Negative) mg/dL Urine Ketones (Negative) mg/dL Urine Occult Blood (Negative) derrek/mcL Urine Nitrate (Negative) Urine Bilirubin (Negative) mg/dL Urine Urobilinogen mg/dL Ur Leukocyte Esterase (Negative) /uL Urine RBC (0-3) /hpf Urine WBC (0-4) /hpf Ur Squamous Epith Cells (0-4) /hpf Urine Bacteria (0) /hpf Ur Culture Indicated? 05/24/22 Range/Units 16:40 WBC (4.5-11.0) K/mcL RBC (4.63-6.08) M/mcL Hgb (13.7-17.5) g/dL Hct (40.1-51.0) % POC Hct (41-55) MCV (80.0-100.0) fL MCH (26.0-34.0) pg MCHC (31.0-36.0) g/dL RDW (11.5-14.5) % Plt Count (140-440) K/mcL MPV (8.8-12.5) fL Immature Gran % (Auto) (0.0-0.5) % Neut % (Auto) (38.0-78.0) % Lymph % (Auto) (15.5-49.0) % [place] % (Auto) (1.0-12.0) % Eos % (Auto) (0.0-7.0) % Baso % (Auto) (0.0-2.0) % Lymph # (Auto) (1.50-4.80) K/mcL [place] # (Auto) (0.10-0.90) K/mcL Eos # (Auto) (0.00-0.70) K/mcL Baso # (Auto) (0.00-0.30) K/mcL Immature Gran # (0.00-0.05) K/mcl Absolute Neutrophils (1.80-8.00) K/mcL ESR (0-20) mm/hr PT (11.9-14.5) sec INR (0.9-1.1) POC Sodium (133-145) POC Potassium (3.3-5.1) Potassium (3.3-5.1) mmol/L POC Chloride (96-108) POC Total CO2 (22-30) POC BUN (6-20) POC Creatinine (0.6-1.2) POC Glucose (70-105) POC WB Ioniz Calcium (1.16-1.32) C-Reactive Protein (0.03-0.80) mg/dL Urine Color Lt. yellow Urine Appearance Clear (Clear) Urine pH 5.5 (5.0-9.0) Ur Specific [place] 1.015 (1.000-1.035) Urine Protein Trace A (Negative) mg/dL Urine Glucose (UA) 250 A (Negative) mg/dL Urine Ketones Negative (Negative) mg/dL Urine Occult Blood Negative (Negative) derrek/mcL Urine Nitrate Negative (Negative) Urine Bilirubin Negative (Negative) mg/dL Urine Urobilinogen Normal mg/dL Ur Leukocyte Esterase Negative (Negative) /uL Urine RBC 0 (0-3) /hpf Urine WBC < 1 (0-4) /hpf Ur Squamous Epith Cells 0 (0-4) /hpf Urine Bacteria None (0) /hpf Ur Culture Indicated? No EKG Data EKG #1: EKG attestation: Yes I reviewed and interpreted this EKG. EKG results narrative: Normal sinus rhythm with a rate of 81, left axis deviation, AK 156, QRS of 148, QTc of 504, T wave flattening in lead III, absence of ST elevation or depression, and right bundle branch block pattern. Discharge Plan Patient/Caregiver Discharge Instructions Pt seen by [employer]/PA only: No Clinical Impression: Osteomyelitis, Open toe wound Activity: ambulate only with your walker Patient Disposition: Xfer As Inpt ([facility]) Discharge Date/Time: 05/24/22 16:58
--- NOTE | 2022-05-24 13:02 | XRay Report ---
CLINICAL INFORMATION: Dyspnea COMPARISON: 11/27/2021 TECHNIQUE: Portable FINDINGS: The heart size, mediastinum and pulmonary vessels are unremarkable. The lungs are clear. There are no effusions. The bones and soft tissues are within normal limits. IMPRESSION: Normal chest. Interpreted and Authenticated by: Armand Vasquez 05/24/22
[2022-05-24 13:08] LABS: POC Calcium, Ionized 1.12 (1.16-1.32); POC Creatinine 1.7 (0.6-1.2); POC Potassium 5.8 (3.3-5.1)
[2022-05-24] MEDS ORDERED: 0.9 % SODIUM CHLORIDE 1,000 ML IV ONE (13:12)
[2022-05-24 13:34] LABS: Basophils # (Auto) 0.04 K/mcL (0.00-0.30); Basophils % (Auto) 0.2 % (0.0-2.0); Eosinophils # (Auto) 0.05 K/mcL (0.00-0.70); Eosinophils % (Auto) 0.3 % (0.0-7.0); Hematocrit 32.1 % (40.1-51.0); Hemoglobin 10.4 g/dL (13.7-17.5); Lymphocytes # (Auto) 1.01 K/mcL (1.50-4.80); Lymphocytes % (Auto) 6.2 % (15.5-49.0); Mean Cell Volume 90.4 fL (80.0-100.0); Mean Corpuscular HGB Conc 32.4 g/dL (31.0-36.0); Mean Platelet Volume 9.3 fL (8.8-12.5); Monocytes # (Auto) 0.95 K/mcL (0.10-0.90); Monocytes % (Auto) 5.8 % (1.0-12.0); Platelet Count 336 K/mcL (140-440); RBC 3.55 M/mcL (4.63-6.08); WBC 16.3 K/mcL (4.5-11.0)
--- NOTE | 2022-05-24 15:04 | Magnetic Resonance Report ---
CLINICAL INFORMATION: Right open wound and infection. COMPARISON: None. TECHNIQUE: Coronal proton density, axial T1-T2 proton density sagittal T1 and sagittal proton density images were acquired Sagittal T2, sagittal T1 FLAIR, sagittal STIR, coronal T2 and axial T2 images were acquired. FINDINGS: On the T2 and proton density images, there is increased signal throughout the first proximal and distal phalanges with osteolysis and moderate inflammation in the surrounding soft tissues. Findings compatible with osteomyelitis and surrounding cellulitis. The first PIP joint shows moderate degeneration. There is marked cellulitis throughout the forefoot and midfoot and myositis and fasciitis the plantar region. IMPRESSION: Severe osteomyelitis involving the first proximal and distal phalanx with surrounding cellulitis. Probable septic arthritis of the first PIP which is not well-visualized Moderate cellulitis and also myositis and fasciitis throughout the foot. Interpreted and Authenticated by: Armand Vasquez 05/24/22
[2022-05-24 15:10] LABS: INR 1.1 (0.9-1.1)
[2022-05-24] MEDS ORDERED: ONDANSETRON 4 MG/2 ML VIAL IV PRN (15:33)
[2022-05-24] MEDS ORDERED: 0.9 % SODIUM CHLORIDE 1,000 ML IV SCH (15:45)
[2022-05-24 17:30] LABS: Appearance,Urine CLEAR (Clear); Bilirubin,Urine NEGATIVE (Negative); Color,Urine LT. YELLOW; Culture Indicated,Urine No; Glucose,Urine (UA) 250 mg/dL (Negative); Ketones,Urine NEGATIVE (Negative); Leukocyte Esterase,Urine NEGATIVE /uL (Negative); Nitrate,Urine NEGATIVE (Negative); PH,Urine 5.5 (5.0-9.0); Protein,Urine TRACE mg/dL (Negative); Specific Gravity,Urine 1.015 (1.000-1.035); Urine Blood NEGATIVE ery/mcL (Negative); Urine RBC 0 /hpf (0-3); Urine Squamous Epithelial Cell 0 /hpf (0-4); Urine WBC < 1 /hpf (0-4); Urobilinogen,Urine Normal
[2022-05-24] MEDS ORDERED: morphine 2 MG/ML VIAL IV PRN (18:22)
[2022-05-24] MEDS ORDERED: ceFAZolin 2 GM in DEXTROSE 5% IN WATER 50 ML IV SCH (18:30)
[2022-05-24] MEDS ORDERED: DEXTROSE 50% 50 ML VIAL IV PRN (19:24)
[2022-05-24] MEDS ORDERED: DEXTROSE 31 GM ORAL.SUSP PO PRN (19:24)
[2022-05-24] MEDS: ceFAZolin 1 GM VIAL IV SCH (19:40)
[2022-05-24] MEDS: 0.9 % SODIUM CHLORIDE 1,000 ML IV SCH (20:04)
[2022-05-24] MEDS: CARVEDILOL 12.5 MG TABLET PO SCH (20:05)
[2022-05-24] MEDS: GABAPENTIN 300 MG CAPSULE PO SCH (20:05)
[2022-05-24] MEDS: glyBURIDE 5 MG TABLET PO SCH (20:06)
[2022-05-24] MEDS: LISINOPRIL 5 MG TABLET PO SCH (20:06)
[2022-05-24] MEDS: FUROSEMIDE 40 MG TABLET PO SCH (20:06)
[2022-05-24] MEDS: INSULIN LISPRO 1 UNIT/0.01 ML UNIT SQ SCH (20:19)
[2022-05-24] MEDS ORDERED: ATORVASTATIN 40 MG TABLET PO SCH (21:00)
[2022-05-24] MEDS ORDERED: rOPINIRole 1 MG TABLET PO SCH (21:00)
[2022-05-24] MEDS: HYDROcodone/APAP 10/325MG TABLET PO PRN (21:25)
[2022-05-25] MEDS: HYDROcodone/APAP 10/325MG TABLET PO PRN ×3 (03:32→13:23)
[2022-05-25] MEDS: ceFAZolin 1 GM VIAL IV SCH ×3 (03:50→13:24)
[2022-05-25] MEDS ORDERED: LEVOTHYROXINE 100 MCG TABLET PO SCH (07:30)
[2022-05-25] MEDS ORDERED: LIDOCAINE HCL/PF 100 MG/5 ML SYRINGE IV ONE (07:51)
[2022-05-25] MEDS ORDERED: PROPOFOL 200 MG/20 ML VIAL IV ONE (07:51)
[2022-05-25] MEDS ORDERED: MIDAZOLAM 2 MG/2 ML VIAL ONE (07:51)
[2022-05-25] MEDS ORDERED: GENTAMICIN SULFATE 800 MG/20 ML VIAL IR ONE (08:00)
[2022-05-25] MEDS ORDERED: SCOPOLAMINE 1 PATCH PATCH TOPICAL PRN (08:00)
[2022-05-25] MEDS ORDERED: IPRATROPIUM/ALBUTEROL 3 ML AMPUL.NEB NEB PRN ×2 (08:00→08:17)
[2022-05-25] MEDS ORDERED: MEPERIDINE 25 MG/ML VIAL IV PRN (08:17)
[2022-05-25] MEDS ORDERED: fentaNYL 100 MCG/2 ML VIAL IV PRN (08:17)
[2022-05-25] MEDS ORDERED: PROCHLORPERAZINE 25 MG SUPP.RECT PR PRN (08:46)
[2022-05-25] MEDS ORDERED: morphine 4 MG/ML VIAL IV PRN (08:46)
[2022-05-25] MEDS ORDERED: ONDANSETRON 4 MG/2 ML VIAL IV PRN (08:46)
[2022-05-25] MEDS ORDERED: HYDROcodone/APAP 10/325MG TABLET PO PRN (08:59)
[2022-05-25] MEDS ORDERED: MODAFINIL 100 MG PO PRN (08:59)
[2022-05-25] MEDS ORDERED: NON FORMULARY MEDICATION 1 DOSE MISCELL (Atorvastatin 80 mg tablet) PO SCH (09:00)
[2022-05-25] MEDS ORDERED: GABAPENTIN 300 MG CAPSULE PO SCH (09:00)
[2022-05-25] MEDS ORDERED: glyBURIDE 5 MG TABLET PO SCH (09:00)
[2022-05-25] MEDS ORDERED: CARVEDILOL 12.5 MG TABLET PO SCH (09:00)
[2022-05-25] MEDS ORDERED: INSULIN ASPART U SUB-Q SCH (09:00)
[2022-05-25] MEDS ORDERED: METHOCARBAMOL 750 MG TABLET PO SCH ×2 (09:00)
[2022-05-25] MEDS ORDERED: CLOPIDOGREL 75 MG TABLET PO SCH ×2 (09:00)
[2022-05-25] MEDS ORDERED: TESTOSTERONE CYPIONATE 200 MG/ML IM SCH (09:00)
[2022-05-25] MEDS ORDERED: LEVOTHYROXINE 100 MCG PO SCH (09:00)
[2022-05-25] MEDS ORDERED: FUROSEMIDE 40 MG TABLET PO SCH (09:00)
[2022-05-25] MEDS ORDERED: LISINOPRIL 5 MG TABLET PO SCH (09:00)
[2022-05-25] MEDS ORDERED: DULAGLUTIDE 4.5 MG/0.5 ML SUB-Q SCH (09:00)
[2022-05-25] MEDS: INSULIN LISPRO 1 UNIT/0.01 ML UNIT SQ SCH ×2 (09:25→11:42)
[2022-05-25] MEDS: GABAPENTIN 300 MG CAPSULE PO SCH (09:42)
[2022-05-25] MEDS: FUROSEMIDE 40 MG TABLET PO SCH (09:42)
[2022-05-25] MEDS: glyBURIDE 5 MG TABLET PO SCH (09:42)
[2022-05-25] MEDS: LISINOPRIL 5 MG TABLET PO SCH (09:43)
[2022-05-25] MEDS: CARVEDILOL 12.5 MG TABLET PO SCH (09:43)
--- NOTE | 2022-05-25 09:51 | Consultation ---
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 POSTOPERATIVE DIAGNOSIS: Right large toe septic arthritis with osteomyelitis and gangrene.. REASON FOR BEING SEEN IN THE EMERGENCY ROOM: The patient presented for infection as directed by Dr. Fuentes to be seen because he felt this was becoming a life-threatening gangrene and the depths of the wound was not healing. The patient is a 61-year-old male with a complex history of neuropathy and diabetes. He dropped engine mount on his toe against the concrete, which caused an injury and open wound that did not heal. Dr. Fuentes saw this and saw the urgent need to be seen. Send him to the emergency room. He was concerned about osteomyelitis and the gangrene smell. MEDICATIONS: The patient is on many medications, these include: 1. Vitamin D3. 2. Levothyroxine. 3. He does take insulin. 4. Testosterone. 5. Gabapentin. 6. Lisinopril. 7. Spironolactone. 8. Furosemide. 9. Plavix. ALLERGIES: HYDROMORPHONE OR DILAUDID, WHICH DOES CAUSE AN ADVERSE REACTION SUCH SEIZURES. REVIEW OF SYSTEMS: He denies fever, chills, nausea or vomiting. He does have very little pain, but there is foul smell. He denies chest pain. Respiratory rate is normal and he has normal breathing. No complaints of GI symptoms. He does have the peripheral neuropathy. No headaches. PAST MEDICAL HISTORY: Quite complicated. He has diabetes, hypertension, peripheral neuropathy, depression, indigestion, asthma, degenerative lumbar spine condition and chronic renal insufficiency and anemia. SURGICAL HISTORY: He has had colonoscopy and a stent placed and for this reason, he is on Plavix. The stent was placed in 2013. PHYSICAL EXAMINATION: GENERAL: Very pleasant 61-year-old male, alert, cooperative, in no severe distress, but his foul smell and draining wound is of concern. LUNGS: Clear to auscultation. CARDIOVASCULAR: Regular rate and rhythm. HEENT: Extraocular movements intact. NECK: Supple, nontender. EXTREMITIES: His lower extremity demonstrates the right lower extremity with an open wound at the interphalangeal joint of the large toe with tissue dorsally with foul smell, anaerobic bacterial smell. LABORATORY DATA: Showed a white count of 16.3, hematocrit of 32.1. His potassium is elevated at 5.9. His MRI does demonstrate osteomyelitis involving the bone with the above-mentioned gangrene. The cellulitis is extended well past the metatarsophalangeal joint dorsally and volarly. With these findings, I have recommended amputation of the toe as this will fester and just possibly take the patient's life. The patient agrees with this. The assessment and plan is for an amputation. He agrees to proceed to excise the tissues and close the living tissue. He will be given antibiotics IV and then a course at home. The patient agrees to proceed, understanding the risks and the benefits of so doing. RBH:williams Job ID: [id number] Doc ID: [id number] Alton Foster MD
[2022-05-25] MEDS ORDERED: ATORVASTATIN 40 MG TABLET PO SCH (10:00)
[2022-05-25] MEDS: PENICILLIN VK 250 MG TABLET PO SCH ×2 (10:18→13:25)
[2022-05-25] MEDS: 0.9 % SODIUM CHLORIDE 1,000 ML IV SCH (11:44)
[2022-05-25] MEDS ORDERED: 0.9 % SODIUM CHLORIDE 10 ML SYRINGE IV SCH (14:00)
[2022-05-25] MEDS ORDERED: ROPINIROLE 2 MG PO SCH (21:00)
--- NOTE | 2022-05-26 08:50 | EKG ---
[facility] Test Date: 2022-05-24 Pat Name: Shamar Valenzuela Department: ED Room: Gender: Male [employer] Worker: SONYA : 1960 Requested By: Uche Brice Order Number: [id number] Reading MD: Lauro Gotti Measurements Intervals [place] Rate: 81 P: 66 KS: 156 QRS: -65 QRSD: 148 T: 44 QT: 432 QTc: 504 Interpretive Statements Sinus rhythm RBBB Electronically Signed On 05-26-2022 8:50:13 PST by Lauro Gotti /store/[email or web address]/[id number]/[id number].pdf
--- NOTE | 2022-05-26 08:51 | EKG ---
[facility] Test Date: 2022-05-24 Pat Name: Shamar Valenzuela Department: ED Room: Gender: Male Survey Interviewer: PLACIDO : 1960 Requested By: Uche Brice Order Number: [id number] Reading MD: Lauro Gotti Measurements Intervals [place] Rate: 86 P: 59 SD: 154 QRS: -61 QRSD: 145 T: 36 QT: 412 QTc: 493 Interpretive Statements Sinus rhythm RBBB Electronically Signed On 05-26-2022 8:51:00 PST by Lauro Gotti /store/M0/[id number]/ecg/[id number].pdf
--- NOTE | 2022-05-27 08:14 | Operative Note ---
DATE OF OPERATION: 05/25/2022 PREOPERATIVE DIAGNOSIS: Osteomyelitis and gangrene of the right large toe. POSTOPERATIVE DIAGNOSIS: Osteomyelitis and gangrene of the right large toe. PROCEDURE: Amputation of the right big toe at the metatarsophalangeal joint disarticulation. SURGEON: Alton Foster M.D. PRODUCTION PATTERN MAKER: Roni Zhao PA-C. The PA's assistance was required for the safe and efficient completion of the entire case. This provider's expertise and technical skill were required throughout the case. The PA assisted with preoperative coordination, intraoperative retraction, wound closure, dressing and splint application, as well as postoperative documentation and care coordination. ANESTHESIA: General LMA anesthesia. COMPLICATIONS: None. SPECIMEN: Sent for pathology evaluation. TOURNIQUET TIME: Esmarch time was 15 minutes. ESTIMATED BLOOD LOSS: 5 mL. DISPOSITION: PACU. PREOPERATIVE MEDICATIONS: Preoperative antibiotics given. IMPLANTS: No implants. DESCRIPTION OF PROCEDURE: The patient was brought to the operating room, put to sleep with general LMA anesthesia. Once asleep, the patient had the right leg sterilely prepped and draped in the usual sterile fashion. A timeout was performed, confirming the operative site by initials, consent form, and x-rays and confirming that preoperative antibiotics had been given. We then made a tennis racquet-type incision with the dorsal line and then excised the tissue that started at the MTP joint. This seemed to have a foul smell. This was disarticulated at the interphalangeal joint. This tissue was removed. We then pulse lavaged and washed the wound. We then removed the proximal phalanx of the big toe, disarticulated this at the metacarpal as the bony surface appeared to have osteomyelitis, even into the condyles of the first phalangeal bone. Once this was removed, we thoroughly irrigated once more. We released the tourniquet at 15 minutes and then placed interrupted 3-0 nylon stitches. The skin did pink up fairly well and it appeared to be in good condition. The foul smell and the erythema had dissipated once we had removed the tissue. We placed a sterile bandage and a walking boot. The patient awoke without difficulty and was transferred to PACU. HOSSEINH:minoo Job ID: [id number] Doc ID: [id number] Alton Foster MD
== END 2022-05-25 14:15 | disposition home or self-care (01) | DRG 908 ==
LOC: ED 10:37 → MEDSUR 16:58
PROVIDERS: ADMIT Orthopaedic Surgery; ATTEND Orthopaedic Surgery